=== PATIENT | male | born 1980 ===

== ENCOUNTER 2018-09-01 10:51 | Inpatient (IN) | payer OTHER ==
--- NOTE | 2018-09-01 12:42 | C.PDOC ---
History Of Present Illness 38 year old male presents to the ED for evaluation of right leg pain and lower back pain which began today. Patient states he was at work when he accidentally fell thorough a scaffold at around 0800 today. Patient denies head injury, LOC, urinary/bowel incontinence, extremity numbness/weakness. Time Seen by Provider: 09/01/18 11:31 Chief Complaint (Nursing): Lower Extremity Problem/Injury History Per: Patient History/Exam Limitations: no limitations Onset/Duration Of Symptoms: Hrs Current Symptoms Are (Timing): Still Present Additional History Per: Patient Past Medical History Reviewed: Historical Data, Nursing Documentation, Vital Signs Vital Signs: Last Vital Signs Temp 98.3 F 09/01/18 10:56 Pulse 97 H 09/01/18 10:56 Resp 20 09/01/18 10:56 BP 154/94 H 09/01/18 10:56 Pulse Ox 97 09/01/18 10:56 - Medical History PMH: No Chronic Diseases Surgical History: No Surg Hx Family History: States: Unknown Family Hx - Social History Hx Alcohol Use: No Hx Substance Use: No - Immunization History Hx Tetanus Toxoid Vaccination: No Hx Influenza Vaccination: Yes Hx Pneumococcal Vaccination: No Review Of Systems Genitourinary: Negative for: Incontinence Musculoskeletal: Positive for: Back Pain (lower), Leg Pain (right) Neurological: Negative for: Weakness, Numbness, Other (head injury, LOC ) Physical Exam - Physical Exam Appears: Non-toxic, No Acute Distress Skin: Normal Color, Warm, Dry, No Rash Head: Atraumatic, Normacephalic, No Tenderness Eye(s): bilateral: Normal Inspection, PERRL, EOMI Ear(s): Bilateral: Normal Nose: Normal, No Septal Hematoma Oral Mucosa: Moist Tongue: Normal Appearing, No Swelling Lips: Normal Appearing, No Swelling Teeth: Normal Dentition, No Tender To Palpation, No Loose Throat: No Erythema, No Exudate Neck: Normal ROM, No Midline Cervical Tenderness, No Paracervical Tenderness, Supple Chest: Symmetrical, No Deformity, No Tenderness, No Ecchymosis, No Subcutaneous Emphysema Cardiovascular: Rhythm Regular, No Friction Rub, No Murmur Respiratory: Normal Breath Sounds, No Rales, No Rhonchi, No Stridor, No Wheezing Gastrointestinal/Abdominal: Bowel Sounds (active), Soft, No Tenderness, No Guarding, No Rebound, No Hernia Back: Normal Inspection, No CVA Tenderness, No Vertebral Tenderness, No Pa raspinal Tenderness Extremity: Tenderness (moderate to lateral right ankle and lateral right knee ), Capillary Refill (less than 2 seconds ), Swelling (moderate to lateral right ankle and lateral right knee ), Other ((+) mild Right hip tenderness) Extremity: Bilateral: Normal Color And Temperature Pulses: Left Femoral: Normal, Right Femoral: Normal, Left Dorsalis Pedis: Normal, Right Dorsalis Pedis: Normal Neurological/Psych: Oriented x3, Normal Speech, Normal Cognition, Normal Sensation Gait: Steady ED Course And Treatment - Laboratory Results Result Diagrams: 09/01/18 16:06 09/01/18 16:06 O2 Sat by Pulse Oximetry: 97 (on RA) Pulse Ox Interpretation: Normal - Other Rad hip/pelvis XR X-Ray: Viewed By Me, Read By Radiologist Interpretation: PROCEDURE: Right Hip Radiographs. The. HISTORY: fall, pain. COMPARISON: None. FINDINGS: BONES: No acute fracture. JOINTS: Normal. SOFT TISSUES: Normal. OTHER FINDINGS: None. IMPRESSION: No demonstrated fracture or dislocation. ankle XR X-Ray: Viewed By Me, Read By Radiologist Interpretation: Date of service: 09/01/2018. PROCEDURE: Right Ankle Rad iographs. Single view of the right ankle obtained. HISTORY: ankle injury, pain. COMPARISON: None available. FINDINGS: BONES: Comminuted intra- articular fracture distal left tibial diametaphysis. JOINTS: Ankle mortise maintained. Talar dome intact. SOFT TISSUES: Diffuse bilateral soft tissue swelling. OTHER FINDINGS: None. IMPRESSION: Comminuted intra-articular fracture of the distal left tibia. Ankle mortise maintained lumbar spine XR X-Ray: Viewed By Me, Read By Radiologist Interpretation: Date of service: 09/01/2018. PROCEDURE: Radiographs of the Lumbar Spine. HISTORY: fall onto back, pain. COMPARISON: No prior. FINDINGS: BONES: No acute compression fractures no retropulsed fragments. Vertebral bodies exhibit normal stature. Vertebral bodies and facets normally aligned. DISC SPACES: Minor multilevel degenerative spondylosis. Small marginal anterior osteophyte formation noted at several levels. Disc space heights are relatively maintained.. Minor facet arthropathy L5-S1 through the L3-L4 levels in somewhat decreasing order of severity. OTHER FINDINGS: None. IMPRESSION: No acute fractures. knee XR X-Ray: Viewed By Me, Read By Radiologist Interpretation: Date of service: 09/01/2018. PROCEDURE: Right Knee Radiographs. HISTORY: Injury, pain and swelling to the knee. COMPARISON: None. FINDINGS: BONES: Normal. No fracture. JOINTS: Small anterior patella enthesophytes. Very tiny posterior patella osteophyte. Minimal marginal osteophyte seen arising from the medial tibial plateau and lateral tibial condyle. JOINT EFFUSION: Small suprapatellar joint effusion. OTHER FINDINGS: None. IMPRESSION: No evidence of acute displaced fracture nor dislocation. Minimal degenerative osteoarthritis with suspected small joint effusion tibia/fibula XR X-Ray: Viewed By Me, Read By Radiologist Interpretation: Date of service: 09/01/2018. PROCEDURE: Radiographs of the right tibia and fibula. HISTORY: injury to the lower leg, swelling. COMPARISON: None available. TECHNIQUE: Frontal and lateral views obtained. FINDINGS: BONES: Comminuted distal tibial fracture with extension to the tibiotalar articulation. JOINT SPACES: Unremarkable. OTHER FINDINGS: None. IMPRESSION: Comminuted intra-articular distal tibial fracture. Medical Decision Making Medical Decision Making: Progress: Hip XR, Right ankle XR, Right knee XR, Right tib/fib XR ordered and reviewed. Motrin PO and Tylenol PO given. At 1330, the case was discussed with Navigating Officer resident, Bisi, who has evaluated the patient at bedside. She recommends CT scan of the lower extrem. Navigating Officer has placed a Posterior U splint on the patient. Case was discussed with Dr. Armando who states she will consult on the patient and send the patient to the OR tomorrow. Patient is to be NPO after midnight. The case was discussed with Dr. Linette Linares who states to admit the patient to internal medicine as the patient has insurance and its worksmen comp. The case was discussed with Dr. Langford (internal medicine oncall) who agrees to admit the patient to her service. Disposition - Disposition Disposition: HOSPITALIZED Disposition Time: 17:20 Condition: STABLE - POA Present On Arrival: None - Clinical Impression Clinical Impression: Fracture of distal end of left tibia, Contusion, hip, Back contusion - PA / [employer] / Resident Statement MD/DO has reviewed & agrees with the documentation as recorded. - Scribe Statement The provider has reviewed the documentation as recorded by the Scribe (Sharda Linares) All medical record entries made by the Scribe were at my direction and personally dictated by me. I have reviewed the chart and agree that the record accurately reflects my personal performance of the history, physical exam, medical decision making, and the department course for this patient. I have also personally directed, reviewed, and agree with the discharge instructions and disposition.
--- NOTE | 2018-09-01 13:25 | RAD ---
PROCEDURE: Right Hip Radiographs. The HISTORY: fall, pain COMPARISON: None. FINDINGS: BONES: No acute fracture. JOINTS: Normal. SOFT TISSUES: Normal. OTHER FINDINGS: None. IMPRESSION: No demonstrated fracture or dislocation.
--- NOTE | 2018-09-01 13:26 | RAD ---
Date of service: 09/01/2018 PROCEDURE: Right Ankle Radiographs. Single view of the right ankle obtained. HISTORY: ankle injury, pain COMPARISON: None available. FINDINGS: BONES: Comminuted intra-articular fracture distal left tibial diametaphysis. JOINTS: Ankle mortise maintained. Talar dome intact SOFT TISSUES: Diffuse bilateral soft tissue swelling OTHER FINDINGS: None. IMPRESSION: Comminuted intra-articular fracture of the distal left tibia. Ankle mortise maintained
--- NOTE | 2018-09-01 13:27 | RAD ---
Date of service: 09/01/2018 PROCEDURE: Right Knee Radiographs. HISTORY: Injury, pain and swelling to the knee COMPARISON: None. FINDINGS: BONES: Normal. No fracture. JOINTS: Small anterior patella enthesophytes. Very tiny posterior patella osteophyte. Minimal marginal osteophyte seen arising from the medial tibial plateau and lateral tibial condyle. JOINT EFFUSION: Small suprapatellar joint effusion. OTHER FINDINGS: None. IMPRESSION: No evidence of acute displaced fracture nor dislocation. Minimal degenerative osteoarthritis with suspected small joint effusion
--- NOTE | 2018-09-01 13:27 | RAD ---
Date of service: 09/01/2018 PROCEDURE: Radiographs of the right tibia and fibula. HISTORY: injury to the lower leg, swelling COMPARISON: None available TECHNIQUE: Frontal and lateral views obtained. FINDINGS: BONES: Comminuted distal tibial fracture with extension to the tibiotalar articulation. JOINT SPACES: Unremarkable. OTHER FINDINGS: None. IMPRESSION: Comminuted intra-articular distal tibial fracture.
--- NOTE | 2018-09-01 13:29 | RAD ---
Date of service: 09/01/2018 PROCEDURE: Radiographs of the Lumbar Spine. HISTORY: fall onto back, pain COMPARISON: No prior. FINDINGS: BONES: No acute compression fractures no retropulsed fragments. Vertebral bodies exhibit normal stature. Vertebral bodies and facets normally aligned. DISC SPACES: Minor multilevel degenerative spondylosis. Small marginal anterior osteophyte formation noted at several levels. Disc space heights are relatively maintained.. Minor facet arthropathy L5-S1 through the L3-L4 levels in somewhat decreasing order of severity. OTHER FINDINGS: None. IMPRESSION: No acute fractures.
--- NOTE | 2018-09-01 14:21 | CP.PCM.CON ---
History of Present Illness - History of Present Illness History of Present Illness: Podiatry Consult Note - Dr. Armando 38 y/o male with no significant PMHx seen in emergency room after falling through scaffolding this morning at 8am. He states he sustained injuries to his lower back, right hip, right knee and right ankle. At present he states the pain is the worst in his ankle with some mild to moderate pain in his lower back. He says he can wiggle his toes. He denies tingling, burning or numbness at present. Denies F/C/N/V/CP/SOB PSHx: denies ALL: NKDA SocHx: social EtOH; denies cigarette or illicit drug use Review of Systems - Review of Systems All systems: reviewed and no additional remarkable complaints except (per HPI) Past Patient History - Past Social History Smoking Status: Never Smoked - PSYCHIATRIC Hx Substance Use: No - SURGICAL HISTORY Hx Surgeries: No - ANESTHESIA Hx Anesthesia: No Meds Allergies/Adverse Reactions: Allergies Allergy/AdvReac Type Severity Reaction Status Date / Time acetaminophen Allergy Verified 09/01/18 11:01 Physical Exam - Constitutional Appears: Well, Non-toxic, No Acute Distress - Extremities Exam Additional comments: Right lower extremity focused exam: Vasc: DP?PT pulses palpable 2/4. Temperature gradient is warm to warm. CFT < 3 sec to all digits. Mild perimalleolar edema noted about the ankle and dorsum of foot Derm: No open lesions, no erythema, no ecchymosis, no breaks in skin or soft tissue Neuro: protective and gross sensation intact Ortho: tenderness noted to palpation of anterior and anterolateral ankle joint. Patient is able to actively wiggle toes and perform dorsiflexion at ankle, limited secondary to guarding. No posterior calf tenderness noted - Neurological Exam Neurological exam: Alert, Oriented x3 - Psychiatric Exam Psychiatric exam: Normal Affect, Normal Mood Results - Vital Signs Recent Vital Signs: Last Vital Signs Temp 98.3 F 09/01/18 10:56 Pulse 97 H 09/01/18 10:56 Resp 20 09/01/18 10:56 BP 154/94 H 09/01/18 10:56 Pulse Ox 97 09/01/18 12:47 Assessment & Plan - Assessment and Plan (Free Text) Assessment: 38 y/o male with 1) right comminuted intraarticular distal tibia fracture secondary to trauma and 2) gait instability Plan Patient seen and evaluated in ED Discussed plan with attending Dr. Armando X-rays of R ankle reviewed- reveal intraarticular distal tibia fracture, ankle mortise well preserved, no fibula fracture identified RLE CT ordered - reveals severely comminuted distal tibia intraarticular fracture; fibula intact with no signs of fracture Additional imaging for poly trauma workup to right knee, hip and back all negative RLE placed in Watson compression and AO splint Patient is to remain NWB at all times and keep splint clean, dry and intact Physical therapy consult placed for crutch training Explained to patient and his that he will need surgical intervention for his right ankle secondary to unstable fracture pattern Patient to be admitted for gait instability and will undergo surgery pending Will continue to follow while in house
[2018-09-01] MEDS ORDERED: Morphine 4 MG/ML VIAL ONE (15:21)
[2018-09-01 16:10] LABS: BASO % 0.5 % (0.0-2.0); EOS % 0.4 % (0.0-4.0); HEMOGLOBIN 16.1 g/dL (12.0-18.0); LYMPH # 1.5 K/uL (1.0-4.3); MEAN CELL VOLUME 85.4 fL (80.0-94.0); MEAN CORPUSCULAR HEMOGLOBIN 27.9 pg (27.0-31.0); MEAN CORPUSCULAR HGB CONC 32.6 g/dL (33.0-37.0); MEAN PLATELET VOLUME 7.6 fL (7.2-11.7); MONO # 0.6 K/uL (0.0-0.8); MONO % 7.5 % (0.0-10.0); NEUT % 73.6 % (50.0-75.0); RBC 5.78 Mil/uL (4.40-5.90); RED CELL DISTRIBUTION WIDTH 15.1 % (11.5-14.5); WHITE BLOOD COUNT 8.1 K/uL (4.8-10.8)
[2018-09-01 16:20] LABS: PROTHROMBIN TIME 11.3 SECONDS (9.7-12.2)
[2018-09-01 16:26] LABS: BLOOD UREA NITROGEN 8 mg/dL (9-20); CALCIUM 8.7 mg/dl (8.6-10.4); GFR NON-AFRICAN AMERICAN > 60
[2018-09-01 16:30] LABS: ALB/GLOB RATIO 1.3 (1.0-2.1); ALBUMIN 4.6 g/dL (3.5-5.0); ALT/SGPT 32 U/L (21-72); AST/SGOT 45 U/L (17-59)
--- NOTE | 2018-09-01 16:31 | CT ---
Date of service: 09/01/2018 PROCEDURE: CT of the right lower extremity. HISTORY: Right ankle fracture with pain right hip and right knee. COMPARISON: Comparison made with plain film radiographs of the right hip, right tibia fibula and right ankle obtained earlier same day TECHNIQUE: Contiguous axial images of the right lower extremity from hip to foot obtained. Obtained. Coronal and sagittal reformats were generated. Radiation dose: Total exam DLP = 1829.36 mGy-cm. This CT exam was performed using one or more of the following dose reduction techniques: Automated exposure control, adjustment of the mA and/or kV according to patient size, and/or use of iterative reconstruction technique. FINDINGS: BONES: Redemonstrated is a mildly displaced comminuted intra-articular fracture of the right distal tibia. Fracture lines extend into the tibiotalar articulation. Ankle mortise maintained No other acute fractures are identified.. Minimal degenerative osteoarthritis right knee. RIGHT HIP JOINT: Unremarkable. No dislocation. No degenerative changes. SOFT TISSUES: There is soft tissue swelling surrounding the right ankle. IMPRESSION: There is a mildly displaced comminuted intra-articular fracture distal right tibia. Ankle mortise maintained. Surrounding soft tissue swelling. No other definitive fractures are identified.
[2018-09-01] MEDS ORDERED: HYDROmorphone 0.5 mg/0.5 ml ISec IVP PRN (22:44)
--- NOTE | 2018-09-02 09:12 | CP.PCM.PN ---
Subjective - Date & Time of Evaluation Date of Evaluation: 09/02/18 Time of Evaluation: 09:11 - Subjective Subjective: Podiatry Progress Note - Dr. 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 38 y/o male seen at bedside this morning for right tibia fracture with AO splint intact to right lower extremity. Patient resting comfortably in bed in NAD, with at bedside. Patient denies any pain at this time, states the medications are helping. States he is aware of surgery tomorrow. Has no new pedal complaints . Says the pain in his right knee, hip and back has slightly improved. He states that he did crutch training earlier today with physical therapy which went well. Denies F/C/N/V/CP/SOB Objective - Vital Signs/Intake and Output Vital Signs (last 24 hours): Temp Pulse Resp BP Pulse Ox 98.0 F 81 20 128/86 95 09/02/18 07:05 09/02/18 07:05 09/02/18 07:05 09/02/18 07:05 09/02/18 07:05 Intake and Output: 09/02/18 09/02/18 06:59 18:59 Intake Total 240 Balance 240 - Medications Medications: Current Medications Hydromorphone HCl (Dilaudid) 0.5 mg IVP Q6H PRN PRN Reason: Pain, moderate (4-7) Ibuprofen (Motrin Tab) 600 mg PO Q6H PRN PRN Reason: Pain, Mild (1-3) Last Admin: 09/01/18 23:47 Dose: 600 mg - Labs Labs: 09/01/18 16:06 09/01/18 16:06 PT 11.3 SECONDS (9.7-12.2) 09/01/18 16:06 INR 1.0 09/01/18 16:06 APTT 30 SECONDS (21-34) 09/01/18 16:06 - Constitutional Appears: Well, Non-toxic, No Acute Distress - Extremities Exam Additional comments: Right lower extremity focused exam: Right lower extremity wrapped in AO splint, remains clean dry and intact at this time- no strikethrough, no signs of wear Patient able to wiggle toes without difficulty or pain Capillary refill time < 3 seconds to all digits - Neurological Exam Neurological Exam: Alert, Awake, Oriented x3 - Psychiatric Exam Psychiatric exam: Normal Affect, Normal Mood Assessment and Plan - Assessment and Plan (Free Text) Assessment: 38 y/o male with right comminuted intraarticular tibia fracture, to go to OR tomorrow at 7:30am for application of external fixator Plan Patient seen and evaluated at bedside Discussed plan with Dr. Armando All questions and concerns regarding surgery and injury answered to satisfaction of patient and his Medical clearance requested at this time, optimization appreciated Patient to be NPO after midnight tonight patient to remain NWB to RLE with use of crutches at all times- physical therapy on board Continue pain management per primary team Pt to go to OR tomorrow at 7:30am for application of external fixator Plan for staged surgical intervention with delayed ORIF of tibia fracture, likely to follow tomorrow's surgery within 5-7 days Please hold all anti-coagulants after tonight/do not begin anticoagulant therapy Will continue to monitor patient while in house
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
--- NOTE | 2018-09-02 16:36 | RAD ---
Date of service: 09/02/2018 HISTORY: medical clearance COMPARISON: No prior. FINDINGS: LUNGS: No pulmonary infiltrate identified. There is a circumscribed nodule in the right upper lobe. Consider further evaluation with computed tomography. Questionable tiny calcified granulomas in the left upper lobe PLEURA: No significant pleural effusion identified, no pneumothorax apparent. CARDIOVASCULAR: No aortic atherosclerotic calcification present. Normal cardiac size. No pulmonary vascular congestion. OSSEOUS STRUCTURES: No significant abnormalities. VISUALIZED UPPER ABDOMEN: Normal. OTHER FINDINGS: None. IMPRESSION: Right upper lobe pulmonary nodule. Possible calcified granulomas in the left upper lobe. Consider further evaluation with computed tomography of the chest.
[2018-09-02] MEDS: HYDROmorphone 1 mg/ml ISec IVP PRN (17:45)
[2018-09-03] MEDS: HYDROmorphone 1 mg/ml ISec IVP PRN ×2 (02:35→11:49)
--- NOTE | 2018-09-03 07:27 | CP.PCM.PN ---
<Nik Romero - Last Filed: 09/03/18 13:05> Subjective - Date & Time of Evaluation Date of Evaluation: 09/03/18 Time of Evaluation: 13:08 - Subjective Subjective: PGY-[address] Escoto Patient seen and examined at bedside post-procedure. He appears to have tolerated procedure well. Patient placed back on regular diet. Will restart AC. Will follow with podiatry for further recs. Patient with adequate pain relief from pain medication regimen. Patient denies shortness of breath, chest pain, headache, n/v/d/c/ Objective - Vital Signs/Intake and Output Vital Signs (last 24 hours): Temp Pulse Resp BP Pulse Ox 98.7 F 89 20 115/68 95 09/03/18 04:00 09/03/18 04:00 09/03/18 04:00 09/03/18 04:00 09/03/18 04:00 Intake and Output: 09/03/18 09/03/18 06:59 18:59 Output Total 450 Balance -450 - Medications Medications: Current Medications Hydromorphone HCl (Dilaudid) 1 mg IVP Q4H PRN PRN Reason: Pain, severe (8-10) Last Admin: 09/03/18 02:35 Dose: 1 mg Ibuprofen (Motrin Tab) 600 mg PO Q6H PRN PRN Reason: Pain, Mild (1-3) Last Admin: 09/02/18 12:58 Dose: 600 mg Oxycodone HCl (Oxycodone Immediate Release Tab) 5 mg PO Q6 PRN PRN Reason: Pain, moderate (4-7) - Labs Labs: 09/01/18 16:06 09/01/18 16:06 PT 11.3 SECONDS (9.7-12.2) 09/01/18 16:06 INR 1.0 09/01/18 16:06 APTT 30 SECONDS (21-34) 09/01/18 16:06 - Constitutional Appears: Non-toxic, No Acute Distress - Head Exam Head Exam: ATRAUMATIC, NORMOCEPHALIC - Eye Exam Eye Exam: EOMI, Normal appearance - ENT Exam ENT Exam: Mucous Membranes Moist - Respiratory Exam Respiratory Exam: Clear to Ausculation Bilateral, NORMAL BREATHING PATTERN. absent: Rhonchi, Wheezes - Cardiovascular Exam Cardiovascular Exam: REGULAR RHYTHM, +S1, +S2 - GI/Abdominal Exam GI & Abdominal Exam: Soft, Normal Bowel Sounds. absent: Tenderness - Extremities Exam Extremities Exam: absent: Pedal Edema, Tenderness Additional comments: right lower extremity with cast and external fixator in place - Neurological Exam Neurological Exam: Alert, Awake, Oriented x3 - Psychiatric Exam Psychiatric exam: Normal Affect, Normal Mood - Skin Skin Exam: Dry, Intact Assessment and Plan - Assessment and Plan (Free Text) Assessment: Comminuted intra articular distal tibial fracture s/p Fall Imaging: -tibia fibula right xray (09/01/18): comminuted intra articular distal tibial fracture -right knee xray: no evidence of acute displaced fracture nor dislocation. minimal degenerative osteoarthritis with suspected small joint effusion. -lumbar spine xray: no acute fractures -ankle xray: comminuted intra-articular fracture of the distal left tibia. Ankle mortise maintained -hip/pelvis xray: no demonstrated fracture or dislocation -CT right LE without contrast: mildly displaced comminuted intra-articular fracture distal right tibia. ankle mortise maintained. surrounding soft tissue swelling. no other definitive fractures are identified. Dr. Armanod, podiatry consulted, help appreciated -application of right ankle external fixator in OR today with podiatry - patient tolerated well --Patient planned for second procedure in 5-7 days for ORIF -Patient is NWB - patient had crutch training with PT -Pt to remain NWB on RLE and continue use of crutches -Continue PT -EKG- NSR Meds: * Dilaudid 1 mg ivp q4h prn for severe pain * Oxycodone 5mg po q6h prn for moderate pain * Ibuprofen 600mg po q6h prn Cardiac Risk Index in Non cardiac Surgery Score: 0 indicates 6% risk of complications patient is low risk for non cardiac surgery Incidental lung nodule on Chest XR - Chest XR 09/02: Right upper lobe pulmonary nodule. Possible calcified granulomas in the left upper lobe. Consider further evaluation with computed tomography of the chest. - Patient denies history of tobacco us, reports no pulmonary symptoms - Would recommend follow with primary for repeat follow up imaging to monitor for progression Prophylaxis -scd on left leg -no gi prophylaxis indicated Discussed with Dr. Jevon Romero, PGY-1 <Joe Escoto - Last Filed: 09/09/18 03:05> Objective - Vital Signs/Intake and Output Vital Signs (last 24 hours): Temp Pulse Resp BP Pulse Ox 98.9 F 85 20 108/66 94 L 09/08/18 23:00 09/08/18 23:00 09/08/18 23:00 09/08/18 23:00 09/08/18 23:00 Intake and Output: 09/08/18 09/09/18 18:59 06:59 Intake Total 380 Output Total 750 Balance -370 - Medications Medications: Current Medications Celecoxib (Celebrex) 100 mg PO Q12 PRN PRN Reason: Pain, moderate (4-7) Famotidine (Pepcid) 20 mg PO DAILY [facility] Last Admin: 09/08/18 10:40 Dose: 20 mg Ketorolac Tromethamine (Toradol) 30 mg IVP Q8 PRN PRN Reason: Pain, moderate (4-7) Last Admin: 09/09/18 01:21 Dose: 30 mg Tramadol HCl (Ultram) 50 mg PO Q12 [facility] Last Admin: 09/08/18 22:02 Dose: 50 mg - Labs Labs: 09/08/18 06:32 09/08/18 06:32 PT 11.3 SECONDS (9.7-12.2) 09/01/18 16:06 INR 1.0 09/01/18 16:06 APTT 30 SECONDS (21-34) 09/01/18 16:06 Attending/Attestation - Attestation I have personally seen and examined this patient.: Yes I have fully participated in the care of the patient.: Yes I have reviewed all pertinent clinical information, including history, physical exam and plan: Yes Notes (Text): 09/09/18 03:04 Tib/Fib Fracture s/p Fall s/p external fixator plan for staged ORIF PT eval Pain meds PRN
[2018-09-03] MEDS ORDERED: Propofol 10 mg/ml Inj (20 ML) ONE (08:21)
[2018-09-03] MEDS ORDERED: Rocuronium 10 mg/ml (5 ml) ONE (08:21)
[2018-09-03] MEDS ORDERED: Succinylcholine Chloride 20 mg/ml Syr (5 ml) IV ONE (08:21)
[2018-09-03] MEDS ORDERED: Midazolam 2 MG/2 ML VIAL ONE (08:21)
[2018-09-03] MEDS ORDERED: ceFAZolin 1 gm in NS 2 GM/200 ML BAG IVPB ONE (08:25)
[2018-09-03] MEDS ORDERED: Neostigmine 1:1000 (1 mg/ml) Inj ONE (09:51)
[2018-09-03] MEDS ORDERED: Ropivacaine 0.5% PF (20 ml) inj INJ ONE (10:01)
--- NOTE | 2018-09-03 10:10 | PCM.SURG1 ---
Surgeon's Initial Post Op Note - Surgeon's Notes Surgeon: mary Office Runner: zia pgy-3, jonathan pgy-2 Type of Anesthesia: General LMA Anesthesia Administered By: mahamed Pre-Operative Diagnosis: right ankle displaced pilon tibial fracture Operative Findings: see dictation. synthes delta frame Post-Operative Diagnosis: same Operation Performed: right ankle application of external fixator Specimen/Specimens Removed: none Estimated Blood Loss: EBL {In ML}: 5 Blood Products Given: N/A Drains Used: No Drains Post-Op Condition: Good Date of Surgery/Procedure: 09/03/18 Time of Surgery/Procedure: 10:09
[2018-09-03] MEDS: HYDROmorphone 0.5 mg/0.5 ml ISec IVP PRN ×2 (10:16→10:23)
--- NOTE | 2018-09-03 10:27 | PCM.ANESB2 ---
Popliteal Nerve Block - Popliteal Nerve Block Date of Procedure: 09/03/18 - Procedure Popliteal Nerve Block: This procedure was explained to the patient that it is for post-operative pain management. Consent was obtained after a thorough discussion with the patient regarding the benefits and possible complications of local anesthetic block of the sciatic nerve at the popliteal level. The patient was brought to the operating room and standard monitors are applied. Time-out was held with the circulating nurse to confirm the correct surgery and the appropriate block. After applying oxygen by nasal cannula and administering IV Sedation, patient's operative leg was gently raised and supported and the groove in between the biceps femoris and vastus lateralis muscles was carefully palpated. The skin approximately 8cm above the popliteal crease was then marked. The ultrasound transducer was then applied to the posterior thigh approximately 8cm above the popliteal crease in the transverse plane and the sciatic nerve before its division was visualized lateral to the popliteal artery and in between the bicep femoris and semimembranosus/semitendinosus muscles. After identification, the lateral portion of the thigh was prepped with Betadine solution three times and Lidocaine 1% was injected subcutaneously for topical anesthesia. At this point, a # 21 gauge Stimuplex insulated 4 inch needle was inserted into pre-marked area and advanced in a perpendicular direction. The needle was inserted above the ultrasound transducer in-plane towards the sciatic nerve in a [id number] direction. Needle advancement was performed carefully under direct ultrasound visualization. After repeated negative aspiration, 30cc of _0.5____ % ____ropivcane__ was injected. Under ultrasound guidance the local anesthetics were observed surrounding sciatic nerve . The needle was removed intact and sterile dressing was applied. The patient tolerated the popliteal nerve block well with stable vital signs and was subsequently prepared for the surgery.
--- NOTE | 2018-09-03 11:12 | RAD ---
Date of service: 09/03/2018 PROCEDURE: Right Ankle Radiographs. HISTORY: s/p right leg surgery COMPARISON: 09/01/2017 FINDINGS: BONES: The comminuted fracture of the distal tibial diaphysis to epiphysis/tibial plafond is hree noted. No significant appearing displacement of the fractured fragments is noted. The tibiotalar fracture line is approximately 1.5 Images obtained during examination: The fracture components in the lateral view involve the anterior distal tibia as well as the posterior malleolus. No horizontal medial malleolar fracture seen. The fibula appears intact. No lateral ankle mortise widening seen. On these images the height of the medial ankle mortise appears slightly greater than that noted laterally. There is a fixation rods/screws projecting through into the proximal tibial shaft, the talus and through the calcaneus. JOINTS: Normal. No osteoarthritis. Ankle mortise maintained. Talar dome intact SOFT TISSUES: Posterior inferior splinter casting present. OTHER FINDINGS: None. IMPRESSION: Comminuted distal tibial fracture with intra-articular extension-no significant displacement. Interval postop changes for fixation purposes as detailed above.
--- NOTE | 2018-09-03 11:14 | RAD ---
Date of service: 09/03/2018 PROCEDURE: Radiographs of the right tibia and fibula. HISTORY: s/p surgery right leg COMPARISON: Correlation is made with the same-day right ankle portable postop study images. TECHNIQUE: Frontal and lateral views obtained. FINDINGS: BONES: The comminuted fracture involving the distal tibial diaphysis metaphysis and epiphysis into the tibiotalar joint is re-noted. No marked displacement of the comminuted fracture fragments noted. There is trace cortical offset of the anterior tibial fractured fragment and perhaps 2 mm separation of fracture ends along the posterior malleolar aspect. JOINT SPACES: Right knee joint mild arthrosis. Right ankle intra-articular fracture extension. No gross ankle mortise widening seen. OTHER FINDINGS: None. IMPRESSION: Postop changes/fixation for comminuted distal tibial fracture intra-articular as referenced above.
--- NOTE | 2018-09-03 11:18 | CARD ---
APPROVED REPORT Date of service: 09/02/2018 EKG Measurement Heart [id number] <Conclusion> Normal sinus rhythm Normal ECG
--- NOTE | 2018-09-03 12:54 | RAD ---
Date of service: 09/03/2018 PROCEDURE: Intraoperative Fluoroscopy. HISTORY: Fracture right ankle FINDINGS: Fluoroscopic assistance was provided for external fixation. Please refer to the operative report from [facility].
--- NOTE | 2018-09-04 00:25 | OP ---
PROCEDURE DATE: 09/03/2018 SURGEON: Peri Armando DPM ASSISTANTS: Bonnie Britton DPM, PGY-3 and Karly Mendoza DPM, PGY-2 FACILITY MAINTENANCE HELPER: Dr. Griffith ANESTHESIA: General LMA. PREOPERATIVE DIAGNOSIS: Right ankle displacing comminuted tibial pilon fracture. POSTOPERATIVE DIAGNOSIS: Right ankle displacing comminuted tibial pilon fracture. PROCEDURE PERFORMED: Right ankle application of external fixator. INDICATIONS: The patient is a 38-year-old male with the above-mentioned diagnosis. The patient seeks surgical intervention at this time. The patient signed the consent after careful explanation of risks, benefits, complications, and alternatives for surgical procedure. No guarantees were given nor implied. NPO status was confirmed prior to bringing the patient into the operating room. The patient was brought into the operating room and placed on the operating room table in a supine position. Time-out was performed for identification of the correct patient and procedure. A well-padded pneumatic thigh tourniquet was placed to the patient's right thigh in a supramalleolar position. After induction of general anesthesia, the right foot and leg were then prepped and draped in a normal sterile manner. The pneumatic thigh tourniquet was then inflated to 350 mmHg, and the procedure began. DESCRIPTION OF PROCEDURE: Attention was directed to the anterior aspect of the right lower extremity, and a sterile pump was applied underneath the right leg to hold the right lower extremity into correct alignment with the frame. Safe zone of the leg was carefully determined under C-arm guidance, and the pin placement sites were marked accordingly. Attention was then directed to the right heel where using a #15 blade, a small 1-cm incision was made medial to the calcaneal tuberosity. A 5-cm centrally threaded Steinmann pin was inserted into the calcaneus from medial to lateral and the other end of the foot. Position was confirmed under C-arm guidance and left in place. Next, open adjustable clamps were attached to the both sides of the Steinmann pin. Attention was directed to the anterior aspect of the right leg where one finger breadth medial to the tibial crest about 20 cm proximal to the ankle joint, a 5-mm Schanz screw was inserted into the tibia from anterior to posterior. Another 5-mm Schanz screw was then inserted about 5 cm distal and proximal to the first screw using a guide and placed from anterior to posterior in the tibia. An outrigger with two arms was attached to the large Pean clamp. Then, a combination of clamps were attached to each arm of the outrigger. Next, two 25-cm carbon fiber rods were attached to the large Pean clamp proximally and the open adjustable clamps distally. Next, attention was then redirected at the talus where under C-arm guidance, another Schanz screw was placed from medial to lateral through the talar neck for fixation and stabilization. Excellent position was noted under fluoroscopy. The pin was then secured to the medial carbon fiber joanie with a combination of Pean clamp. Next, the distal pins were then pulled distally, and the ankle joint was distracted and then reduced until more anatomic alignment. The rods and the clamps were then taken down and secured to maximum tightness with a wrench. The right lower extremity was then dressed with Betadine-soaked Adaptic, 4x4 gauze, Jade, Christiano and a posterior splint. POSTOPERATIVE CONDITION: The patient tolerated the anesthesia and the procedure well and was escorted to the recovery room with vital signs stable and neurovascular status intact to right lower extremity. The patient will follow up with Dr. Armando in her office or in clinic on an outpatient basis. Bonnie Britton DPM Peri Armando DPM
[2018-09-04] MEDS: HYDROmorphone 1 mg/ml ISec IVP PRN ×5 (03:50→21:14)
[2018-09-04] MEDS: oxyCODONE 5 mg Immediate Release Tab PO PRN ×3 (06:00→20:14)
--- NOTE | 2018-09-04 15:18 | CP.PCM.PN ---
<Nik Romero - Last Filed: 09/04/18 15:18> Subjective - Date & Time of Evaluation Date of Evaluation: 09/04/18 Time of Evaluation: 15:23 - Subjective Subjective: PGY-[address] Linares Patient seen and examined at bedside. I was paged by nursing last night for patient c/o numbness and decreased motor function in right foot. On assessment, patient had strong pulses and warm extremities, but decreased motor/sensory. Alerted podiatry resident and confirmed that this was most likely 2/2 residual effects of popliteal nerve block. Today, patient no long c/o of these symptoms. He is c/o some pain in the affected extremity. Otherwise denies n/v/d/c, chest pain, headache, dizziness, SOB. Objective - Vital Signs/Intake and Output Vital Signs (last 24 hours): Temp Pulse Resp BP Pulse Ox 98.3 F 89 20 126/79 96 09/04/18 07:00 09/04/18 07:00 09/04/18 07:00 09/04/18 07:00 09/04/18 07:00 Intake and Output: 09/04/18 09/04/18 06:59 18:59 Intake Total 720 Output Total 450 Balance 270 - Medications Medications: Current Medications Heparin Sodium (Porcine) (Heparin) 5,000 units SC Q8 [facility] Last Admin: 09/04/18 14:13 Dose: 5,000 units Hydromorphone HCl (Dilaudid) 1 mg IVP Q4H PRN PRN Reason: Pain, severe (8-10) Last Admin: 09/04/18 14:05 Dose: 1 mg Ibuprofen (Motrin Tab) 600 mg PO Q6H PRN PRN Reason: Pain, Mild (1-3) Last Admin: 09/02/18 12:58 Dose: 600 mg Oxycodone HCl (Oxycodone Immediate Release Tab) 5 mg PO Q6 PRN PRN Reason: Pain, moderate (4-7) Last Admin: 09/04/18 12:26 Dose: 5 mg - Labs Labs: 09/01/18 16:06 09/01/18 16:06 PT 11.3 SECONDS (9.7-12.2) 09/01/18 16:06 INR 1.0 09/01/18 16:06 APTT 30 SECONDS (21-34) 09/01/18 16:06 - Constitutional Appears: Non-toxic, No Acute Distress - Head Exam Head Exam: ATRAUMATIC, NORMOCEPHALIC - Eye Exam Eye Exam: EOMI, Normal appearance - ENT Exam ENT Exam: Mucous Membranes Moist - Respiratory Exam Respiratory Exam: Clear to Ausculation Bilateral, NORMAL BREATHING PATTERN. absent: Rhonchi, Wheezes - Cardiovascular Exam Cardiovascular Exam: REGULAR RHYTHM, +S1, +S2 - GI/Abdominal Exam GI & Abdominal Exam: Soft, Normal Bowel Sounds. absent: Tenderness - Extremities Exam Extremities Exam: absent: Pedal Edema, Tenderness Additional comments: RLE stabilized with appropriate dressing and external fixators per surgery. Both LEs are neurovascularly intact, with strong pedal pulses b/l and motor/sensory fully intact. - Neurological Exam Neurological Exam: Alert, Awake, CN II-XII Intact, Oriented x3 - Psychiatric Exam Psychiatric exam: Normal Affect, Normal Mood - Skin Skin Exam: Dry, Intact Assessment and Plan - Assessment and Plan (Free Text) Assessment: Comminuted intra articular distal tibial fracture s/p Fall Imaging: -tibia fibula right xray (09/01/18): comminuted intra articular distal tibial fracture -right knee xray: no evidence of acute displaced fracture nor dislocation. minimal degenerative osteoarthritis with suspected small joint effusion. -lumbar spine xray: no acute fractures -ankle xray: comminuted intra-articular fracture of the distal left tibia. Ankle mortise maintained -hip/pelvis xray: no demonstrated fracture or dislocation -CT right LE without contrast: mildly displaced comminuted intra-articular fracture distal right tibia. ankle mortise maintained. surrounding soft tissue swelling. no other definitive fractures are identified. Dr. Armando, podiatry consulted, help appreciated -S/p application of right ankle external fixator in OR 09/03 with podiatry --Patient planned for second procedure in1-2 weeks for ORIF -Podiatry had recommended d/c to [facility] earlier this AM, however patient unable to be transferred to [facility] due to insurance reasons. Therefore we will continue to follow the case inpatient along with podiatry. -Patient is NWB - patient had crutch training with PT -Pt to remain NWB on RLE and continue use of crutches -Continue PT -EKG- NSR Meds: * Dilaudid 1 mg ivp q4h prn for severe pain * Oxycodone 5mg po q6h prn for moderate pain * Ibuprofen 600mg po q6h prn Cardiac Risk Index in Non cardiac Surgery Score: 0 indicates 6% risk of complications patient is low risk for non cardiac surgery Incidental lung nodule on Chest XR - Chest XR 09/02: Right upper lobe pulmonary nodule. Possible calcified granulomas in the left upper lobe. Consider further evaluation with computed tomography of the chest. - Patient denies history of tobacco us, reports no pulmonary symptoms - Would recommend follow with primary for repeat follow up imaging to monitor for progression Prophylaxis -scd on left leg -no gi prophylaxis indicated Discussed with Dr. Jevon Romero, PGY-1 <Joe Escoto - Last Filed: 09/09/18 03:04> Subjective - Subjective Subjective: Progress note for Dr Escoto Objective - Vital Signs/Intake and Output Vital Signs (last 24 hours): Temp Pulse Resp BP Pulse Ox 98.9 F 85 20 108/66 94 L 09/08/18 23:00 09/08/18 23:00 09/08/18 23:00 09/08/18 23:00 09/08/18 23:00 Intake and Output: 09/08/18 09/09/18 18:59 06:59 Intake Total 380 Output Total 750 Balance -370 - Medications Medications: Current Medications Celecoxib (Celebrex) 100 mg PO Q12 PRN PRN Reason: Pain, moderate (4-7) Famotidine (Pepcid) 20 mg PO DAILY [facility] Last Admin: 09/08/18 10:40 Dose: 20 mg Ketorolac Tromethamine (Toradol) 30 mg IVP Q8 PRN PRN Reason: Pain, moderate (4-7) Last Admin: 09/09/18 01:21 Dose: 30 mg Tramadol HCl (Ultram) 50 mg PO Q12 [facility] Last Admin: 09/08/18 22:02 Dose: 50 mg - Labs Labs: 09/08/18 06:32 09/08/18 06:32 PT 11.3 SECONDS (9.7-12.2) 09/01/18 16:06 INR 1.0 09/01/18 16:06 APTT 30 SECONDS (21-34) 09/01/18 16:06 Attending/Attestation - Attestation I have personally seen and examined this patient.: Yes I have fully participated in the care of the patient.: Yes I have reviewed all pertinent clinical information, including history, physical exam and plan: Yes Notes (Text): 09/09/18 02:57 Tib/Fib Fracture s/p Fall s/p external fixator on 09/03 plan for staged ORIF Pt has no insurance, as such we are unable to DC to [facility] while awaiting second stage of surgery Pain meds PRN PT eval
--- NOTE | 2018-09-04 15:28 | CP.PCM.PN ---
Subjective - Date & Time of Evaluation Date of Evaluation: 09/04/18 Time of Evaluation: 15:28 - Subjective Subjective: Podiatry Progress Note - Dr. Armando 38 y/o male seen at bedside today 1 day s/p application of external fixator to right lower extremity for comminuted intraarticular tibia fracture. Pt is resting at time of visit in NAD. States his pain is better today. Admits it was very painful last night when the nerve block wore off. Says the meds are helping to control the pain. States he is understanding that the next surgery will be delayed for a week or two. Denies F/C/N/V/CP/SOB. Denies putting any weight down on the right leg and is ambulating well with crutches. Objective - Vital Signs/Intake and Output Vital Signs (last 24 hours): Temp Pulse Resp BP Pulse Ox 98.3 F 89 20 126/79 96 09/04/18 07:00 09/04/18 07:00 09/04/18 07:00 09/04/18 07:00 09/04/18 07:00 Intake and Output: 09/04/18 09/04/18 06:59 18:59 Intake Total 720 Output Total 450 Balance 270 - Medications Medications: Current Medications Heparin Sodium (Porcine) (Heparin) 5,000 units SC Q8 GREGORY Last Admin: 09/04/18 14:13 Dose: 5,000 units Hydromorphone HCl (Dilaudid) 1 mg IVP Q4H PRN PRN Reason: Pain, severe (8-10) Last Admin: 09/04/18 14:05 Dose: 1 mg Ibuprofen (Motrin Tab) 600 mg PO Q6H PRN PRN Reason: Pain, Mild (1-3) Last Admin: 09/02/18 12:58 Dose: 600 mg Oxycodone HCl (Oxycodone Immediate Release Tab) 5 mg PO Q6 PRN PRN Reason: Pain, moderate (4-7) Last Admin: 09/04/18 12:26 Dose: 5 mg - Labs Labs: 09/01/18 16:06 09/01/18 16:06 PT 11.3 SECONDS (9.7-12.2) 09/01/18 16:06 INR 1.0 09/01/18 16:06 APTT 30 SECONDS (21-34) 09/01/18 16:06 - Constitutional Appears: Well, Non-toxic, No Acute Distress - Extremities Exam Additional comments: Right lower extremity focused exam: External fixator to right leg - pin sites examined and clean, no surrounding erythema or cellulitis, no drainage from pin sites, no concern for infection Vasc: DP/PT pulses are palpable 2/4 . Temperature gradient warm to warm. No significant edema noted to entirety of right lower extremity Neuro: protective and gross sensation intact Ortho: mild tenderness to palpation of skin near pin sites - Neurological Exam Neurological Exam: Alert, Awake, Oriented x3 - Psychiatric Exam Psychiatric exam: Normal Affect, Normal Mood Assessment and Plan - Assessment and Plan (Free Text) Assessment: 38 y/o male 1 day s/p right lower extremity application of external fixator for comminuted intraarticular tibia fracture Plan Patient seen and evaluated at bedside Discussed plan with Dr. Armando Surgical dressings removed and pin sites examined and cleaned Re-dressed RLE with betadine adaptic to pin sites, gauze, kerlix, Webril cast padding, posterior splint and AMITA Pt to be NWB at all times with use of crutches Likely to return to OR within 1-2 weeks for ORIF of tibia fracture Pt stable for D/C to rehab facility; D/C home not advised at patient lives on 4th floor walkup and is a fall risk Will continue to follow patient in house
[2018-09-05] MEDS: HYDROmorphone 1 mg/ml ISec IVP PRN ×5 (02:07→22:18)
[2018-09-05 07:15] LABS: MEAN CELL VOLUME 86.3 fL (80.0-94.0); MEAN CORPUSCULAR HEMOGLOBIN 28.4 pg (27.0-31.0); MEAN CORPUSCULAR HGB CONC 32.9 g/dL (33.0-37.0); MEAN PLATELET VOLUME 7.7 fL (7.2-11.7); RBC 5.28 Mil/uL (4.40-5.90); RED CELL DISTRIBUTION WIDTH 14.2 % (11.5-14.5); WHITE BLOOD COUNT 5.8 K/uL (4.8-10.8)
[2018-09-05 08:04] LABS: ALB/GLOB RATIO 1.3 (1.0-2.1); ALBUMIN 4.3 g/dL (3.5-5.0); ALT/SGPT 27 U/L (21-72); AST/SGOT 28 U/L (17-59); BLOOD UREA NITROGEN 11 mg/dL (9-20); CALCIUM 8.9 mg/dl (8.6-10.4); GFR NON-AFRICAN AMERICAN > 60
--- NOTE | 2018-09-05 09:02 | CP.PCM.PN ---
Subjective - Date & Time of Evaluation Date of Evaluation: 09/05/18 Time of Evaluation: 08:40 - Subjective Subjective: This is a 38 year old male who is status post external fixator placement on 09/03 for the right lower extremity for a comminuted intra-articular tibial fracture. There are plans for further surgery later this upcoming week. He reported pain overnight, however it is controlled with the pain medication regimen he is on at this time Hgb is stable this morning He denied chest pain, denied shortness of breath, denied palpitations, denied abominal pain Objective - Vital Signs/Intake and Output Vital Signs (last 24 hours): Temp Pulse Resp BP Pulse Ox 98.1 F 84 20 113/67 96 09/05/18 07:25 09/05/18 07:25 09/05/18 07:25 09/05/18 07:25 09/05/18 07:25 Intake and Output: 09/05/18 09/05/18 06:59 18:59 Intake Total 520 Output Total 600 Balance -80 - Medications Medications: Current Medications Heparin Sodium (Porcine) (Heparin) 5,000 units SC Q8 GREGORY Last Admin: 09/05/18 05:45 Dose: 5,000 units Hydromorphone HCl (Dilaudid) 1 mg IVP Q4H PRN PRN Reason: Pain, severe (8-10) Last Admin: 09/05/18 08:32 Dose: 1 mg Ibuprofen (Motrin Tab) 600 mg PO Q6H PRN PRN Reason: Pain, Mild (1-3) Last Admin: 09/02/18 12:58 Dose: 600 mg Oxycodone HCl (Oxycodone Immediate Release Tab) 5 mg PO Q6 PRN PRN Reason: Pain, moderate (4-7) Last Admin: 09/04/18 20:14 Dose: 5 mg - Labs Labs: 09/05/18 07:06 09/05/18 07:06 PT 11.3 SECONDS (9.7-12.2) 09/01/18 16:06 INR 1.0 09/01/18 16:06 APTT 30 SECONDS (21-34) 09/01/18 16:06 - Constitutional Appears: Well, No Acute Distress - Head Exam Head Exam: NORMAL INSPECTION, NORMOCEPHALIC - Eye Exam Eye Exam: EOMI, Normal appearance - ENT Exam ENT Exam: Mucous Membranes Moist - Respiratory Exam Respiratory Exam: Clear to Ausculation Bilateral, NORMAL BREATHING PATTERN - Cardiovascular Exam Cardiovascular Exam: REGULAR RHYTHM - Extremities Exam Additional comments: Right lower extremity with external fixator and covered with erin-wrapping at this time - Neurological Exam Neurological Exam: Alert, Awake Neuro motor strength exam: Left Upper Extremity: 5, Right Upper Extremity: 5 - Psychiatric Exam Psychiatric exam: Normal Affect, Normal Mood - Skin Skin Exam: Normal Color, Warm Assessment and Plan - Assessment and Plan (Free Text) Assessment: Comminuted intra articular distal tibial fracture s/p Fall 09/05: PT recommended [facility] however given that he will need additional procedure in the next one to two weeks the patient currently remains in the hosptial that time. Lab work stable, pain controlled at the moment. From previous: Imaging: -tibia fibula right xray (09/01/18): comminuted intra articular distal tibial fracture -right knee xray: no evidence of acute displaced fracture nor dislocation. minimal degenerative osteoarthritis with suspected small joint effusion. -lumbar spine xray: no acute fractures -ankle xray: comminuted intra-articular fracture of the distal left tibia. Ankle mortise maintained -hip/pelvis xray: no demonstrated fracture or dislocation -CT right LE without contrast: mildly displaced comminuted intra-articular frac ture distal right tibia. ankle mortise maintained. surrounding soft tissue swelling. no other definitive fractures are identified. Dr. Armando, podiatry consulted, help appreciated -S/p application of right ankle external fixator in OR 09/03 with podiatry --Patient planned for second procedure in1-2 weeks for ORIF -Podiatry had recommended d/c to [facility] earlier this AM, however patient unable to be transferred to [facility] due to insurance reasons. Therefore we will continue to follow the case inpatient along with podiatry. -Patient is NWB - patient had crutch training with PT -Pt to remain NWB on RLE and continue use of crutches -Continue PT -EKG- NSR Meds: * Dilaudid 1 mg ivp q4h prn for severe pain * Oxycodone 5mg po q6h prn for moderate pain * Ibuprofen 600mg po q6h prn Cardiac Risk Index in Non cardiac Surgery Score: 0 indicates 6% risk of complications patient is low risk for non cardiac surgery Incidental lung nodule on Chest XR - Chest XR 09/02: Right upper lobe pulmonary nodule. Possible calcified granulomas in the left upper lobe. Consider further evaluation with computed tomography of the chest. - Patient denies history of tobacco us, reports no pulmonary symptoms - Would recommend follow with primary for repeat follow up imaging to monitor for progression Prophylaxis -scd on left leg -no gi prophylaxis indicated
--- NOTE | 2018-09-05 11:41 | CP.PCM.PN ---
Subjective - Date & Time of Evaluation Date of Evaluation: 09/05/18 Time of Evaluation: 11:39 - Subjective Subjective: Podiatry Progress Note - Dr. Armando 38 y/o male seen at bedside today 2 days s/p application of external fixator to right lower extremity for comminuted intraarticular tibia fracture. Pt is resting at time of visit in NAD. States his pain is better today. Says the meds are helping to control the pain. States he is understanding that the next surgery will be delayed for a week or two, and patient pending discharge to [facility]. Denies F/C/N/V/CP/SOB. Denies putting any weight down on the right leg and is ambulating well with crutches. Objective - Vital Signs/Intake and Output Vital Signs (last 24 hours): Temp Pulse Resp BP Pulse Ox 98.1 F 84 20 113/67 96 09/05/18 07:25 09/05/18 07:25 09/05/18 07:25 09/05/18 07:25 09/05/18 07:25 Intake and Output: 09/05/18 09/05/18 06:59 18:59 Intake Total 520 Output Total 600 Balance -80 - Medications Medications: Current Medications Heparin Sodium (Porcine) (Heparin) 5,000 units SC Q8 GREGORY Last Admin: 09/05/18 05:45 Dose: 5,000 units Hydromorphone HCl (Dilaudid) 1 mg IVP Q4H PRN PRN Reason: Pain, severe (8-10) Last Admin: 09/05/18 08:32 Dose: 1 mg Ibuprofen (Motrin Tab) 600 mg PO Q6H PRN PRN Reason: Pain, Mild (1-3) Last Admin: 09/02/18 12:58 Dose: 600 mg Oxycodone HCl (Oxycodone Immediate Release Tab) 5 mg PO Q6 PRN PRN Reason: Pain, moderate (4-7) Last Admin: 09/04/18 20:14 Dose: 5 mg - Labs Labs: 09/05/18 07:06 09/05/18 07:06 PT 11.3 SECONDS (9.7-12.2) 09/01/18 16:06 INR 1.0 09/01/18 16:06 APTT 30 SECONDS (21-34) 09/01/18 16:06 - Constitutional Appears: Well, Non-toxic, No Acute Distress - Head Exam Head Exam: ATRAUMATIC, NORMOCEPHALIC - Extremities Exam Additional comments: Dressing to the Right leg clean, dry and intact - Neurological Exam Neurological Exam: Alert, Awake, Oriented x3 - Psychiatric Exam Psychiatric exam: Normal Affect, Normal Mood Assessment and Plan - Assessment and Plan (Free Text) Assessment: 38 y/o male 2 days s/p right lower extremity application of external fixator for comminuted intraarticular tibia fracture Plan: Patient seen and evaluated at bedside Discussed plan with Dr. Armando Surgical dressings kept intact- next change Friday09/07/18 Pt to be NWB at all times with use of crutches Likely to return to OR within 1-2 weeks for ORIF of tibia fracture Pt stable for D/C to rehab facility; D/C home not advised as patient lives on 4th floor walkup and is a fall risk Pending discharge to [facility] Will continue to follow patient in house
[2018-09-06] MEDS: HYDROmorphone 1 mg/ml ISec IVP PRN ×5 (03:42→23:16)
[2018-09-06 08:34] LABS: HEMOGLOBIN 15.3 g/dL (12.0-18.0); MEAN CELL VOLUME 86.1 fL (80.0-94.0); MEAN CORPUSCULAR HEMOGLOBIN 28.3 pg (27.0-31.0); MEAN CORPUSCULAR HGB CONC 32.9 g/dL (33.0-37.0); MEAN PLATELET VOLUME 7.3 fL (7.2-11.7); RBC 5.39 Mil/uL (4.40-5.90); RED CELL DISTRIBUTION WIDTH 14.4 % (11.5-14.5); WHITE BLOOD COUNT 4.8 K/uL (4.8-10.8)
--- NOTE | 2018-09-06 08:49 | CP.PCM.PN ---
Subjective - Date & Time of Evaluation Date of Evaluation: 09/06/18 Time of Evaluation: 08:48 - Subjective Subjective: Podiatry Progress Note - Dr. Armando 38 y/o male seen at bedside today 3 days s/p application of external fixator to right lower extremity for comminuted intraarticular tibia fracture. Pt is resting at time of visit in NAD. States his pain is better today. Says the meds are helping to control the pain. States he is understanding that the next surgery will be delayed for a week or two, and patient pending discharge to [facility]. Denies F/C/N/V/CP/SOB. Denies putting any weight down on the right leg and is ambulating well with crutches. Objective - Vital Signs/Intake and Output Vital Signs (last 24 hours): Temp Pulse Resp BP Pulse Ox 98.2 F 82 18 110/65 96 09/06/18 07:30 09/06/18 07:30 09/06/18 07:30 09/06/18 07:30 09/06/18 07:30 Intake and Output: 09/06/18 09/06/18 06:59 18:59 Intake Total 120 Output Total 650 Balance -530 - Medications Medications: Current Medications Heparin Sodium (Porcine) (Heparin) 5,000 units SC Q8 GREGORY Last Admin: 09/06/18 06:46 Dose: 5,000 units Hydromorphone HCl (Dilaudid) 1 mg IVP Q4H PRN PRN Reason: Pain, severe (8-10) Last Admin: 09/06/18 08:46 Dose: 1 mg Ibuprofen (Motrin Tab) 600 mg PO Q6H PRN PRN Reason: Pain, Mild (1-3) Last Admin: 09/02/18 12:58 Dose: 600 mg Oxycodone HCl (Oxycodone Immediate Release Tab) 5 mg PO Q6 PRN PRN Reason: Pain, moderate (4-7) Last Admin: 09/04/18 20:14 Dose: 5 mg - Labs Labs: 09/06/18 08:24 09/05/18 07:06 PT 11.3 SECONDS (9.7-12.2) 09/01/18 16:06 INR 1.0 09/01/18 16:06 APTT 30 SECONDS (21-34) 09/01/18 16:06 - Constitutional Appears: Well, Non-toxic, No Acute Distress - Head Exam Head Exam: ATRAUMATIC, NORMOCEPHALIC - Extremities Exam Additional comments: Dressing to the Right leg clean, dry and intact Sensation intact patient able to wiggle digits - Neurological Exam Neurological Exam: Alert, Awake, Oriented x3 - Psychiatric Exam Psychiatric exam: Normal Affect, Normal Mood Assessment and Plan - Assessment and Plan (Free Text) Assessment: 38 y/o male 3 days s/p right lower extremity application of external fixator for comminuted intraarticular tibia fracture Plan: Patient seen and evaluated at bedside Discussed plan with Dr. Armando Surgical dressings kept intact- next change Friday09/07/18 Pt to be NWB at all times with use of crutches Likely to return to OR within 1-2 weeks for ORIF of tibia fracture Pt stable for D/C to rehab facility; D/C home not advised as patient lives on 4th floor walkup and is a fall risk Pending discharge to [facility] Will continue to follow patient in house
[2018-09-06 08:55] LABS: BLOOD UREA NITROGEN 12 mg/dL (9-20); GFR NON-AFRICAN AMERICAN > 60
[2018-09-06 08:56] LABS: ALB/GLOB RATIO 1.3 (1.0-2.1); ALBUMIN 4.4 g/dL (3.5-5.0); ALT/SGPT 25 U/L (21-72); AST/SGOT 34 U/L (17-59)
--- NOTE | 2018-09-06 10:31 | CP.PCM.PN ---
Subjective - Date & Time of Evaluation Date of Evaluation: 09/06/18 Time of Evaluation: 10:00 - Subjective Subjective: Patient was seen and examined by me. The patient was not in any acute distress. No issues overnight He reported the pain was controlled. This is a 38 year old male who is status post external fixator placement on 09/03 for the right lower extremity for a comminuted intra-articular tibial fracture. There are plans for further surgery later this upcoming week. It has been suggested he be discharged to [facility] for the time being, however due to his social situation he remains in hospital. Objective - Vital Signs/Intake and Output Vital Signs (last 24 hours): Temp Pulse Resp BP Pulse Ox 98.2 F 82 18 110/65 96 09/06/18 07:30 09/06/18 07:30 09/06/18 07:30 09/06/18 07:30 09/06/18 07:30 Intake and Output: 09/06/18 09/06/18 06:59 18:59 Intake Total 120 Output Total 650 Balance -530 - Medications Medications: Current Medications Heparin Sodium (Porcine) (Heparin) 5,000 units SC Q8 GREGORY Last Admin: 09/06/18 06:46 Dose: 5,000 units Hydromorphone HCl (Dilaudid) 1 mg IVP Q4H PRN PRN Reason: Pain, severe (8-10) Last Admin: 09/06/18 08:46 Dose: 1 mg Ibuprofen (Motrin Tab) 600 mg PO Q6H PRN PRN Reason: Pain, Mild (1-3) Last Admin: 09/02/18 12:58 Dose: 600 mg Oxycodone HCl (Oxycodone Immediate Release Tab) 5 mg PO Q6 PRN PRN Reason: Pain, moderate (4-7) Last Admin: 09/04/18 20:14 Dose: 5 mg - Labs Labs: 09/06/18 08:24 09/06/18 08:24 PT 11.3 SECONDS (9.7-12.2) 09/01/18 16:06 INR 1.0 09/01/18 16:06 APTT 30 SECONDS (21-34) 09/01/18 16:06 - Constitutional Appears: Well, No Acute Distress - Head Exam Head Exam: NORMAL INSPECTION, NORMOCEPHALIC - Eye Exam Eye Exam: EOMI, Normal appearance - Respiratory Exam Respiratory Exam: Clear to Ausculation Bilateral, NORMAL BREATHING PATTERN - Cardiovascular Exam Cardiovascular Exam: REGULAR RHYTHM - GI/Abdominal Exam GI & Abdominal Exam: Soft, Normal Bowel Sounds - Neurological Exam Neurological Exam: Alert, Awake, Oriented x3 Neuro motor strength exam: Left Upper Extremity: 5, Right Upper Extremity: 5 - Psychiatric Exam Psychiatric exam: Normal Affect, Normal Mood - Skin Skin Exam: Normal Color, Warm Assessment and Plan - Assessment and Plan (Free Text) Assessment: Comminuted intra articular distal tibial fracture s/p Fall 09/06: Because of social situation and lack of insurance he can't go to [facility] and it appears he is going to remain in the hospital. 09/05: PT recommended [facility] however given that he will need additional procedure in the next one to two weeks the patient currently remains in the hosptial that time. Lab work stable, pain controlled at the moment. From previous: Imaging: -tibia fibula right xray (09/01/18): comminuted intra articular distal tibial fracture -right knee xray: no evidence of acute displaced fracture nor dislocation. minimal degenerative osteoarthritis with suspected small joint effusion. -lumbar spine xray: no acute fractures -ankle xray: comminuted intra-articular fracture of the distal left tibia. Ankle mortise maintained -hip/pelvis xray: no demonstrated fracture or dislocation -CT right LE without contrast: mildly displaced comminuted intra-articular fracture distal right tibia. ankle mortise maintained. surrounding soft tissue swelling. no other definitive fractures are identified. Dr. Armando, podiatry consulted, help appreciated -S/p application of right ankle external fixator in OR 09/03 with podiatry --Patient planned for second procedure in1-2 weeks for ORIF -Podiatry had recommended d/c to [facility] earlier this AM, however patient unable to be transferred to [facility] due to insurance reasons. Therefore we will continue to follow the case inpatient along with podiatry. -Patient is NWB - patient had crutch training with PT -Pt to remain NWB on RLE and continue use of crutches -Continue PT -EKG- NSR Meds: * Dilaudid 1 mg ivp q4h prn for severe pain * Oxycodone 5mg po q6h prn for moderate pain * Ibuprofen 600mg po q6h prn Cardiac Risk Index in Non cardiac Surgery Score: 0 indicates 6% risk of complications patient is low risk for non cardiac surgery Incidental lung nodule on Chest XR - Chest XR 09/02: Right upper lobe pulmonary nodule. Possible calcified granulomas in the left upper lobe. Consider further evaluation with computed tomography of the chest. - Patient denies history of tobacco us, reports no pulmonary symptoms - Would recommend follow with primary for repeat follow up imaging to monitor for progression Prophylaxis SCD on other leg GI prophylaxis
[2018-09-06] MEDS ORDERED: oxyCODONE 5 mg Immediate Release Tab PO PRN (18:54)
[2018-09-07 00:47] VITALS: RESP 20
[2018-09-07] MEDS: HYDROmorphone 1 mg/ml ISec IVP PRN ×3 (03:13→12:57)
--- NOTE | 2018-09-07 07:29 | CP.PCM.PN ---
<JosefinaluisaPierre - Last Filed: 09/07/18 17:26> Subjective - Date & Time of Evaluation Date of Evaluation: 09/07/18 Time of Evaluation: 07:28 - Subjective Subjective: HOSPITALIST SERVICE Pt seen and examined at bedside. Complains of soreness at site of surgery. Pt is able to feel and move his toes, no signs of ascute swelling now color change or temperature changes, denies fevers chills cp sob, denies diarrhea Objective - Vital Signs/Intake and Output Vital Signs (last 24 hours): Temp Pulse Resp BP Pulse Ox 99 F 88 20 112/68 95 09/07/18 00:00 09/07/18 03:00 09/07/18 00:00 09/07/18 03:00 09/07/18 00:00 Intake and Output: 09/07/18 09/07/18 06:59 18:59 Output Total 300 Balance -300 - Medications Medications: Current Medications Hydromorphone HCl (Dilaudid) 1 mg IVP Q4H PRN PRN Reason: Pain, severe (8-10) Last Admin: 09/07/18 03:13 Dose: 1 mg Ibuprofen (Motrin Tab) 600 mg PO Q6H PRN PRN Reason: Pain, Mild (1-3) Last Admin: 09/02/18 12:58 Dose: 600 mg Oxycodone HCl (Oxycodone Immediate Release Tab) 5 mg PO Q6 PRN PRN Reason: Pain, moderate (4-7) Last Admin: 09/06/18 21:12 Dose: 5 mg - Labs Labs: 09/06/18 08:24 09/06/18 08:24 PT 11.3 SECONDS (9.7-12.2) 09/01/18 16:06 INR 1.0 09/01/18 16:06 APTT 30 SECONDS (21-34) 09/01/18 16:06 - Additional Findings Additional findings: - Constitutional Appears: Well, No Acute Distress - Head Exam Head Exam: NORMAL INSPECTION, NORMOCEPHALIC - Eye Exam Eye Exam: EOMI, Normal appearance - Respiratory Exam Respiratory Exam: Clear to Ausculation Bilateral, NORMAL BREATHING PATTERN - Cardiovascular Exam Cardiovascular Exam: REGULAR RHYTHM, L popliteal pulse present - GI/Abdominal Exam GI & Abdominal Exam: Soft, Normal Bowel Sounds - Neurological Exam Neurological Exam: Alert, Awake, Oriented x3, sensation intact in toes of L foot. Neuro motor strength exam: Left Upper Extremity: 5, Right Upper Extremity: 5 - Psychiatric Exam Psychiatric exam: Normal Affect, Normal Mood - Skin Skin Exam: Normal Color, Warm Assessment and Plan - Assessment and Plan (Free Text) Assessment: 38M admitted for Distal Tibial fracture, R ankle External Fixation on 09/03, scheduled for ORIF in 1 week likely 09/18 PLAN Comminuted intra articular distal tibial fracture s/p Fall Dr. Armando, podiatry consulted, help appreciated -S/p application of right ankle external fixator in OR 09/03 with podiatry --Patient planned for second procedure in1-2 weeks for ORIF likely 09/18 -Podiatry had recommended d/c to [facility] earlier this AM, however patient unable to be transferred to [facility] due to insurance reasons. Therefore we will continue to follow the case inpatient along with podiatry. * Dilaudid 1 mg ivp q12h prn for severe pain * tramadol 50mg po q6h prn for moderate pain * Mobic po q6h prn * Pepcid 20 PO Imaging: -tibia fibula right xray (09/01/18): comminuted intra articular distal tibial fracture -right knee xray: no evidence of acute displaced fracture nor dislocation. minimal degenerative osteoarthritis with suspected small joint effusion. -lumbar spine xray: no acute fractures -ankle xray: comminuted intra-articular fracture of the distal left tibia. Ankle mortise maintained -hip/pelvis xray: no demonstrated fracture or dislocation -CT right LE without contrast: mildly displaced comminuted intra-articular fracture distal right tibia. ankle mortise maintained. surrounding soft tissue swelling. no other definitive fractures are identified. -Patient is NWB - patient had crutch training with PT -Pt to remain NWB on RLE and continue use of crutches -Continue PT -EKG- NSR Meds: Cardiac Risk Index in Non cardiac Surgery Score: 0 indicates 6% risk of complications patient is low risk for non cardiac surgery Incidental lung nodule on Chest XR - Chest XR 09/02: Right upper lobe pulmonary nodule. Possible calcified granulomas in the left upper lobe. Consider further evaluation with computed tomography of the chest. - Patient denies history of tobacco us, reports no pulmonary symptoms - Would recommend follow with primary for repeat follow up imaging to monitor for progression Prophylaxis SCD on other leg GI prophylaxis- Pepcid PO DISPO: Pt doesnt qualify for [facility] so holding until ready for ORIF <Michelle Mota - Last Filed: 09/07/18 19:19> Objective - Vital Signs/Intake and Output Vital Signs (last 24 hours): Temp Pulse Resp BP Pulse Ox 98.2 F 82 20 109/68 94 L 09/07/18 15:26 09/07/18 15:26 09/07/18 15:26 09/07/18 15:26 09/07/18 15:26 Intake and Output: 09/07/18 09/08/18 18:59 06:59 Output Total 300 Balance -300 - Medications Medications: Current Medications Celecoxib (Celebrex) 100 mg PO Q12 PRN PRN Reason: Pain, moderate (4-7) Famotidine (Pepcid) 20 mg PO DAILY GREGORY Last Admin: 09/07/18 13:37 Dose: 20 mg Hydromorphone HCl (Dilaudid) 1 mg IVP Q12 PRN PRN Reason: Pain, severe (8-10) Last Admin: 09/07/18 12:57 Dose: 1 mg Tramadol HCl (Ultram) 50 mg PO Q6 PRN PRN Reason: Pain, moderate (4-7) Last Admin: 09/07/18 18:16 Dose: 50 mg - Labs Labs: 09/07/18 07:32 09/07/18 07:32 PT 11.3 SECONDS (9.7-12.2) 09/01/18 16:06 INR 1.0 09/01/18 16:06 APTT 30 SECONDS (21-34) 09/01/18 16:06 Attending/Attestation - Attestation I have personally seen and examined this patient.: Yes I have fully participated in the care of the patient.: Yes I have reviewed all pertinent clinical information, including history, physical exam and plan: Yes Notes (Text): seen and examined by me with the resident and he is complaining of leg pain pain meds control his pain Discussed about avoid narcotics with the resident patient will be going for ORIF on 09/03
[2018-09-07 07:48] LABS: HEMOGLOBIN 15.3 g/dL (12.0-18.0); MEAN CELL VOLUME 85.5 fL (80.0-94.0); MEAN CORPUSCULAR HEMOGLOBIN 28.2 pg (27.0-31.0); MEAN PLATELET VOLUME 7.4 fL (7.2-11.7); RBC 5.44 Mil/uL (4.40-5.90); RED CELL DISTRIBUTION WIDTH 14.2 % (11.5-14.5); WHITE BLOOD COUNT 4.8 K/uL (4.8-10.8)
[2018-09-07 08:22] LABS: ALB/GLOB RATIO 1.3 (1.0-2.1); ALBUMIN 4.3 g/dL (3.5-5.0); ALT/SGPT 40 U/L (21-72); AST/SGOT 37 U/L (17-59); BLOOD UREA NITROGEN 14 mg/dL (9-20); GFR NON-AFRICAN AMERICAN > 60
--- NOTE | 2018-09-07 19:33 | CP.PCM.PN ---
Subjective - Date & Time of Evaluation Date of Evaluation: 09/07/18 Time of Evaluation: 13:30 - Subjective Subjective: Podiatry Progress Note for Dr. Armando 38 y/o male seen at bedside today 4 days s/p application of external fixator to right lower extremity for comminuted intraarticular tibia fracture. Patient is AAO x 3 and NAD, resting comfortably in bed. Says that he continues to experience some pain but that it is relatively well controlled. Denies any acute overnight events or new pedal complaints at this time. Denies any recent N/V/F/C/CP/SOB/D Objective - Vital Signs/Intake and Output Vital Signs (last 24 hours): Temp Pulse Resp BP Pulse Ox 98.2 F 82 20 109/68 94 L 09/07/18 15:26 09/07/18 15:26 09/07/18 15:26 09/07/18 15:26 09/07/18 15:26 Intake and Output: 09/07/18 09/08/18 18:59 06:59 Output Total 300 Balance -300 - Medications Medications: Current Medications Celecoxib (Celebrex) 100 mg PO Q12 PRN PRN Reason: Pain, moderate (4-7) Famotidine (Pepcid) 20 mg PO DAILY [facility] Last Admin: 09/07/18 13:37 Dose: 20 mg Hydromorphone HCl (Dilaudid) 1 mg IVP Q12 PRN PRN Reason: Pain, severe (8-10) Last Admin: 09/07/18 12:57 Dose: 1 mg Tramadol HCl (Ultram) 50 mg PO Q6 PRN PRN Reason: Pain, moderate (4-7) Last Admin: 09/07/18 18:16 Dose: 50 mg - Labs Labs: 09/07/18 07:32 09/07/18 07:32 PT 11.3 SECONDS (9.7-12.2) 09/01/18 16:06 INR 1.0 09/01/18 16:06 APTT 30 SECONDS (21-34) 09/01/18 16:06 - Constitutional Appears: Well, Non-toxic, No Acute Distress - Extremities Exam Additional comments: RLE focused exam: Vasc: DP/PT pulses fully palpable 2/4. Skin temperature warm to warm from proximal to distal WNL. CFT < 3 seconds to all digits b/l. Moderate, non-pitting edema noted to RLE Neuro: Epicritic and protective sensation grossly intact Derm: No open lesions, wounds, maceration, xerosis, abnormal pigmentation or abnormal growths noted. External fixator noted to be intact with no evidence of pin tract infections appreciated MSK: Deferred due to nature of injury - Neurological Exam Neurological Exam: Alert, Awake, Oriented x3 - Psychiatric Exam Psychiatric exam: Normal Affect, Normal Mood Assessment and Plan - Assessment and Plan (Free Text) Assessment: 38 y/o male seen at bedside today 4 days s/p application of external fixator to right lower extremity for comminuted intraarticular tibia fracture Plan: Patient seen and evaluated with Dr. Armando Afebrile, absent leukocytosis Continue pain medication per medicine team CT of RLE ordered Patient will be brought back to OR for removal of external fixator and ORIF Tentative date of procedure is 09/18 pending patients levels of edema Pin sites dressed with xeroform Leg dressed with Watson compression and posterior splint Patient to remain NWB Podiatry will continue to follow while patient in house
[2018-09-08] MEDS: HYDROmorphone 1 mg/ml ISec IVP PRN ×2 (01:07→14:09)
[2018-09-08 06:40] LABS: HEMOGLOBIN 15.4 g/dL (12.0-18.0); MEAN CELL VOLUME 85.4 fL (80.0-94.0); MEAN CORPUSCULAR HEMOGLOBIN 28.3 pg (27.0-31.0); MEAN CORPUSCULAR HGB CONC 33.1 g/dL (33.0-37.0); MEAN PLATELET VOLUME 7.3 fL (7.2-11.7); RBC 5.43 Mil/uL (4.40-5.90); WHITE BLOOD COUNT 5.6 K/uL (4.8-10.8)
--- NOTE | 2018-09-08 07:46 | CP.PCM.PN ---
Subjective - Date & Time of Evaluation Date of Evaluation: 09/08/18 Time of Evaluation: 07:43 - Subjective Subjective: HOSPITALIST SERVICE Pt s/e at bedside, reports increased pain since dilaudid was tapered down to q12. Pt reports abiloity to move and feel his toes, denies new sensations of warmth or pressure. Denies CP, SOB F/C/N/V/ Diarrhea. Pt understands current status and agrees w/ plan Objective - Vital Signs/Intake and Output Vital Signs (last 24 hours): Temp Pulse Resp BP Pulse Ox 98.8 F 95 H 20 106/62 95 09/07/18 23:00 09/07/18 23:00 09/07/18 23:00 09/07/18 23:00 09/07/18 23:00 Intake and Output: 09/08/18 09/08/18 06:59 18:59 Intake Total 240 Output Total 900 Balance -660 - Medications Medications: Current Medications Celecoxib (Celebrex) 100 mg PO Q12 PRN PRN Reason: Pain, moderate (4-7) Famotidine (Pepcid) 20 mg PO DAILY [facility] Last Admin: 09/07/18 13:37 Dose: 20 mg Hydromorphone HCl (Dilaudid) 1 mg IVP Q12 PRN PRN Reason: Pain, severe (8-10) Last Admin: 09/08/18 01:07 Dose: 1 mg Tramadol HCl (Ultram) 50 mg PO Q6 PRN PRN Reason: Pain, moderate (4-7) Last Admin: 09/08/18 05:27 Dose: 50 mg - Labs Labs: 09/08/18 06:32 09/07/18 07:32 PT 11.3 SECONDS (9.7-12.2) 09/01/18 16:06 INR 1.0 09/01/18 16:06 APTT 30 SECONDS (21-34) 09/01/18 16:06 - Additional Findings Additional findings: - Constitutional Appears: Well, No Acute Distress - Head Exam Head Exam: NORMAL INSPECTION, NORMOCEPHALIC - Eye Exam Eye Exam: EOMI, Normal appearance - Respiratory Exam Respiratory Exam: Clear to Ausculation Bilateral, NORMAL BREATHING PATTERN - Cardiovascular Exam Cardiovascular Exam: REGULAR RHYTHM, L popliteal pulse present - GI/Abdominal Exam GI & Abdominal Exam: Soft, Normal Bowel Sounds - Neurological Exam Neurological Exam: Alert, Awake, Oriented x3, sensation intact in toes of L foot. Neuro motor strength exam: Left Upper Extremity: 5, Right Upper Extremity: 5 - Psychiatric Exam Psychiatric exam: Normal Affect, Normal Mood - Skin Skin Exam: Normal Color, Warm Assessment and Plan - Assessment and Plan (Free Text) Assessment: 38M admitted for Distal Tibial fracture, R ankle External Fixation on 09/03, scheduled for ORIF in 1 week likely 09/18 PLAN Comminuted intra articular distal tibial fracture s/p Fall Dr. Armando, podiatry consulted, help appreciated -S/p application of right ankle external fixator in OR 09/03 with podiatry --Patient planned for second procedure in1-2 weeks for ORIF likely 09/18 -Podiatry had recommended d/c to [facility] earlier this AM, however patient unable to be transferred to [facility] due to insurance reasons. Therefore we will continue to follow the case inpatient along with podiatry. * Toradol 30 ivp q8h prn for severe pain * tramadol 50mg po q12h prn for moderate pain * Celebrex 100mg PO q12 prn * Pepcid 20 PO Imaging: -tibia fibula right xray (09/01/18): comminuted intra articular distal tibial fracture -right knee xray: no evidence of acute displaced fracture nor dislocation. minimal degenerative osteoarthritis with suspected small joint effusion. -lumbar spine xray: no acute fractures -ankle xray: comminuted intra-articular fracture of the distal left tibia. Ankle mortise maintained -hip/pelvis xray: no demonstrated fracture or dislocation -CT right LE without contrast: mildly displaced comminuted intra-articular fracture distal right tibia. ankle mortise maintained. surrounding soft tissue swelling. no other definitive fractures are identified. -Patient is NWB - patient had crutch training with PT -Pt to remain NWB on RLE and continue use of crutches -Continue PT -EKG- NSR Meds: Cardiac Risk Index in Non cardiac Surgery Score: 0 indicates 6% risk of complications patient is low risk for non cardiac surgery Incidental lung nodule on Chest XR - Chest XR 09/02: Right upper lobe pulmonary nodule. Possible calcified granulomas in the left upper lobe. Consider further evaluation with computed tomography of the chest. - Patient denies history of tobacco us, reports no pulmonary symptoms - Would recommend follow with primary for repeat follow up imaging to monitor for progression Prophylaxis SCD on other leg GI prophylaxis- Pepcid PO DISPO: Pt doesnt qualify for [facility] so holding until ready for ORIF
[2018-09-08 07:49] LABS: ALB/GLOB RATIO 1.3 (1.0-2.1); ALBUMIN 4.3 g/dL (3.5-5.0); ALT/SGPT 50 U/L (21-72); AST/SGOT 41 U/L (17-59); BLOOD UREA NITROGEN 13 mg/dL (9-20); GFR NON-AFRICAN AMERICAN > 60
--- NOTE | 2018-09-08 11:52 | CT ---
CT right lower extremity HISTORY: Fracture. COMPARISON: X-ray dated 09/03/2018 Findings: External fixators in place extending through the mid medullary cavity of the tibia as well as within talus and calcaneus. Again identified is a markedly comminuted intra-articular fracture deformity through the distal tibia extending from the level of the metaphysis circumferentially to the intra-articular surface of the tibiotalar joint space. Multiple areas of comminution involving the fracture site. Reticulation and edema within the circumferential subcutaneous soft tissues. Impression: External fixators in place extending through the mid medullary cavity of the tibia as well as within talus and calcaneus. Again identified is a markedly comminuted intra-articular fracture deformity through the distal tibia extending from the level of the metaphysis circumferentially to the intra-articular surface of the tibiotalar joint space. Multiple areas of comminution involving the fracture site. Reticulation and edema within the circumferential subcutaneous soft tissues.
--- NOTE | 2018-09-08 19:07 | CP.PCM.PN ---
<Rafael Fernandez - Last Filed: 09/08/18 19:04> Subjective - Date & Time of Evaluation Date of Evaluation: 09/08/18 Time of Evaluation: 14:00 - Subjective Subjective: Podiatry Progress Note for Dr. Armando 38 y/o male seen at bedside today 5 days s/p application of external fixator to right lower extremity for comminuted intraarticular tibia fracture. Patient is AAO x 3 and NAD, resting comfortably in bed. Says that he continues to experience some pain but that it is relatively well controlled and improved since yesterday. Denies any acute overnight events or new pedal complaints at this time. Denies any recent N/V/F/C/CP/SOB/D Objective - Vital Signs/Intake and Output Vital Signs (last 24 hours): Temp Pulse Resp BP Pulse Ox 98.2 F 86 20 96/60 L 93 L 09/08/18 16:05 09/08/18 16:05 09/08/18 16:05 09/08/18 16:05 09/08/18 16:05 - Medications Medications: Current Medications Celecoxib (Celebrex) 100 mg PO Q12 PRN PRN Reason: Pain, moderate (4-7) Famotidine (Pepcid) 20 mg PO DAILY [facility] Last Admin: 09/08/18 10:40 Dose: 20 mg Ketorolac Tromethamine (Toradol) 30 mg IVP Q8 PRN PRN Reason: Pain, moderate (4-7) Tramadol HCl (Ultram) 50 mg PO Q12 [facility] - Labs Labs: 09/08/18 06:32 09/08/18 06:32 PT 11.3 SECONDS (9.7-12.2) 09/01/18 16:06 INR 1.0 09/01/18 16:06 APTT 30 SECONDS (21-34) 09/01/18 16:06 - Constitutional Appears: Well, Non-toxic, No Acute Distress - Extremities Exam Additional comments: Dressings left clean, dry and intact to right leg - Neurological Exam Neurological Exam: Alert, Awake, Oriented x3 - Psychiatric Exam Psychiatric exam: Normal Affect, Normal Mood Assessment and Plan - Assessment and Plan (Free Text) Assessment: 38 y/o male seen at bedside today 5 days s/p application of external fixator to right lower extremity for comminuted intraarticular tibia fracture Plan: Patient seen and evaluated Plan discussed with Dr. Armando Continue pain medication per medicine team CT of RLE: Comminuted intra-articular fracture of the distal tibia Patient will be brought back to OR for removal of external fixator and ORIF Tentative date of procedure is 09/18 pending patients levels of edema Patient to remain NWB Podiatry will continue to follow while patient in house <Peri Armando - Last Filed: 09/09/18 10:14> Subjective - Subjective Subjective: Reviewed with resident and agree with assessment and plan. Objective - Vital Signs/Intake and Output Vital Signs (last 24 hours): Temp Pulse Resp BP Pulse Ox 97.9 F 78 20 105/67 95 09/09/18 07:20 09/09/18 07:20 09/09/18 07:20 09/09/18 07:20 09/09/18 07:20 Intake and Output: 09/09/18 09/09/18 06:59 18:59 Intake Total 380 Output Total 950 Balance -570 - Medications Medications: Current Medications Famotidine (Pepcid) 20 mg PO DAILY [facility] Last Admin: 09/09/18 09:50 Dose: 20 mg Heparin Sodium (Porcine) (Heparin) 5,000 units SC Q8 [facility] Last Admin: 09/09/18 09:50 Dose: 5,000 units Ketorolac Tromethamine (Toradol) 30 mg IVP Q8 PRN PRN Reason: Pain, moderate (4-7) Last Admin: 09/09/18 01:21 Dose: 30 mg Tramadol HCl (Ultram) 50 mg PO Q12 [facility] Last Admin: 09/08/18 22:02 Dose: 50 mg - Labs Labs: 09/09/18 06:50 09/09/18 06:50 PT 11.3 SECONDS (9.7-12.2) 09/01/18 16:06 INR 1.0 09/01/18 16:06 APTT 30 SECONDS (21-34) 09/01/18 16:06
--- NOTE | 2018-09-09 07:12 | CP.PCM.PN ---
Subjective - Date & Time of Evaluation Date of Evaluation: 09/09/18 Time of Evaluation: 07:10 - Subjective Subjective: HOSPITALIST SERVICE Pt seen and examined at bedside. Pt reports L sided calf soreness. Pt reports pain well controlled. Pt feels toes and can wiggle them. Denies CP, SOB FC [place] Objective - Vital Signs/Intake and Output Vital Signs (last 24 hours): Temp Pulse Resp BP Pulse Ox 98.9 F 85 20 108/66 94 L 09/08/18 23:00 09/08/18 23:00 09/08/18 23:00 09/08/18 23:00 09/08/18 23:00 Intake and Output: 09/09/18 09/09/18 06:59 18:59 Intake Total 380 Output Total 950 Balance -570 - Medications Medications: Current Medications Famotidine (Pepcid) 20 mg PO DAILY [facility] Last Admin: 09/08/18 10:40 Dose: 20 mg Heparin Sodium (Porcine) (Heparin) 5,000 units SC Q8 [facility] Ketorolac Tromethamine (Toradol) 30 mg IVP Q8 PRN PRN Reason: Pain, moderate (4-7) Last Admin: 09/09/18 01:21 Dose: 30 mg Tramadol HCl (Ultram) 50 mg PO Q12 [facility] Last Admin: 09/08/18 22:02 Dose: 50 mg - Labs Labs: 09/08/18 06:32 09/08/18 06:32 PT 11.3 SECONDS (9.7-12.2) 09/01/18 16:06 INR 1.0 09/01/18 16:06 APTT 30 SECONDS (21-34) 09/01/18 16:06 - Additional Findings Additional findings: - Constitutional Appears: Well, No Acute Distress - Head Exam Head Exam: NORMAL INSPECTION, NORMOCEPHALIC - Eye Exam Eye Exam: EOMI, Normal appearance - Respiratory Exam Respiratory Exam: Clear to Ausculation Bilateral, NORMAL BREATHING PATTERN - Cardiovascular Exam Cardiovascular Exam: REGULAR RHYTHM, L popliteal pulse present - GI/Abdominal Exam GI & Abdominal Exam: Soft, Normal Bowel Sounds - Neurological Exam Neurological Exam: Alert, Awake, Oriented x3, sensation intact in toes of L foot. Neuro motor strength exam: Left Upper Extremity: 5, Right Upper Extremity: 5 -MSK Pain when compressing L calf - Psychiatric Exam Psychiatric exam: Normal Affect, Normal Mood - Skin Skin Exam: Normal Color, Warm Assessment and Plan - Assessment and Plan (Free Text) Assessment: Assessment and Plan - Assessment and Plan (Free Text) Assessment: 38M admitted for Distal Tibial fracture, R ankle External Fixation on 09/03, sche duled for ORIF in 1 week likely 09/18 PLAN Comminuted intra articular distal tibial fracture s/p Fall Dr. Armando, podiatry consulted, help appreciated -S/p application of right ankle external fixator in OR 09/03 with podiatry --Patient planned for second procedure in1-2 weeks for ORIF likely 09/18 -Podiatry had recommended d/c to [facility] earlier this AM, however patient unable to be transferred to [facility] due to insurance reasons. Therefore we will continue to follow the case inpatient along with podiatry. * Toradol 30 ivp q8h prn for severe pain * tramadol 50mg po q12h prn for moderate pain * Pepcid 20 PO Imaging: -tibia fibula right xray (09/01/18): comminuted intra articular distal tibial fracture -right knee xray: no evidence of acute displaced fracture nor dislocation. minimal degenerative osteoarthritis with suspected small joint effusion. -lumbar spine xray: no acute fractures -ankle xray: comminuted intra-articular fracture of the distal left tibia. Ankle mortise maintained -hip/pelvis xray: no demonstrated fracture or dislocation -CT right LE without contrast: mildly displaced comminuted intra-articular fracture distal right tibia. ankle mortise maintained. surrounding soft tissue swelling. no other definitive fractures are identified. -09/09 Left LE Duplex: -Patient is NWB - patient had crutch training with PT -Pt to remain NWB on RLE and continue use of crutches -Continue PT -EKG- NSR Cardiac Risk Index in Non cardiac Surgery Score: 0 indicates 6% risk of complications patient is low risk for non cardiac surgery Incidental lung nodule on Chest XR - Chest XR 09/02: Right upper lobe pulmonary nodule. Possible calcified granulomas in the left upper lobe. Consider further evaluation with computed tomography of the chest. - Patient denies history of tobacco us, reports no pulmonary symptoms - Would recommend follow with primary for repeat follow up imaging to monitor for progression Prophylaxis SCD on other leg GI prophylaxis- Pepcid PO DISPO: Pt doesnt qualify for [facility] so holding until ready for ORIF
[2018-09-09 07:14] LABS: HEMOGLOBIN 15.8 g/dL (12.0-18.0); MEAN CELL VOLUME 85.9 fL (80.0-94.0); MEAN CORPUSCULAR HEMOGLOBIN 28.3 pg (27.0-31.0); MEAN PLATELET VOLUME 7.2 fL (7.2-11.7); RBC 5.59 Mil/uL (4.40-5.90); WHITE BLOOD COUNT 4.6 K/uL (4.8-10.8)
[2018-09-09 07:39] LABS: ALB/GLOB RATIO 1.3 (1.0-2.1); ALBUMIN 4.2 g/dL (3.5-5.0); ALT/SGPT 48 U/L (21-72); AST/SGOT 35 U/L (17-59); BLOOD UREA NITROGEN 17 mg/dL (9-20); CALCIUM 9.4 mg/dl (8.6-10.4); GFR NON-AFRICAN AMERICAN > 60
--- NOTE | 2018-09-09 13:42 | CP.PCM.DIS ---
Provider - Provider Date of Admission: 09/01/18 17:23 Attending physician: Michelle Mota MD Consults: 09/01/18 15:46 Physician Consult Stat Comment: Consulting Provider: Peri Armando Consulting Physician: Peri Armando Reason for Consult: tibial fracture Time Spent in preparation of Discharge (in minutes): 45 Diagnosis - Discharge Diagnosis (1) Fracture of distal end of left tibia Status: Acute Priority: High Hospital Course - Lab Results Lab Results: Most Recent Lab Values WBC 4.6 K/uL (4.8-10.8) L 09/09/18 06:50 RBC 5.59 Mil/uL (4.40-5.90) 09/09/18 06:50 Hgb 15.8 g/dL (12.0-18.0) 09/09/18 06:50 Hct 48.0 % (35.0-51.0) 09/09/18 06:50 MCV 85.9 fL (80.0-94.0) 09/09/18 06:50 MCH 28.3 pg (27.0-31.0) 09/09/18 06:50 MCHC 33.0 g/dL (33.0-37.0) 09/09/18 06:50 RDW 14.0 % (11.5-14.5) 09/09/18 06:50 Plt Count 310 K/uL (130-400) 09/09/18 06:50 MPV 7.2 fL (7.2-11.7) 09/09/18 06:50 Neut % (Auto) 73.6 % (50.0-75.0) 09/01/18 16:06 Lymph % (Auto) 18.0 % (20.0-40.0) L 09/01/18 16:06 [place] % (Auto) 7.5 % (0.0-10.0) 09/01/18 16:06 Eos % (Auto) 0.4 % (0.0-4.0) 09/01/18 16:06 Baso % (Auto) 0.5 % (0.0-2.0) 09/01/18 16:06 Neut # (Auto) 6.0 K/uL (1.8-7.0) 09/01/18 16:06 Lymph # (Auto) 1.5 K/uL (1.0-4.3) 09/01/18 16:06 [place] # (Auto) 0.6 K/uL (0.0-0.8) 09/01/18 16:06 Eos # (Auto) 0.0 K/uL (0.0-0.7) 09/01/18 16:06 Baso # (Auto) 0.0 K/uL (0.0-0.2) 09/01/18 16:06 PT 11.3 SECONDS (9.7-12.2) 09/01/18 16:06 INR 1.0 09/01/18 16:06 APTT 30 SECONDS (21-34) 09/01/18 16:06 Sodium 139 mmol/L (132-148) 09/09/18 06:50 Potassium 4.1 mmol/L (3.6-5.2) 09/09/18 06:50 Chloride 102 mmol/L (98-107) 09/09/18 06:50 Carbon Dioxide 29 mmol/L (22-30) 09/09/18 06:50 Anion Gap 12 (10-20) 09/09/18 06:50 BUN 17 mg/dL (9-20) 09/09/18 06:50 Creatinine 0.7 mg/dL (0.8-1.5) L 09/09/18 06:50 Est GFR ( Amer) > 60 09/09/18 06:50 Est GFR (Non-Af Amer) > 60 09/09/18 06:50 Random Glucose 100 mg/dL (75-110) 09/09/18 06:50 Calcium 9.4 mg/dl (8.6-10.4) 09/09/18 06:50 Phosphorus 5.2 mg/dL (2.5-4.5) H 09/09/18 06:50 Magnesium 2.1 mg/dL (1.6-2.3) 09/09/18 06:50 Total Bilirubin 1.1 mg/dL (0.2-1.3) 09/09/18 06:50 AST 35 U/L (17-59) 09/09/18 06:50 ALT 48 U/L (21-72) 09/09/18 06:50 Alkaline Phosphatase 99 U/L (38-126) 09/09/18 06:50 Total Protein 7.5 g/dL (6.3-8.3) 09/09/18 06:50 Albumin 4.2 g/dL (3.5-5.0) 09/09/18 06:50 Globulin 3.3 gm/dL (2.2-3.9) 09/09/18 06:50 Albumin/Globulin Ratio 1.3 (1.0-2.1) 09/09/18 06:50 - Hospital Course Hospital Course: HPI: Patient is a 38 year old male with no significant past medical history who 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 Patient says he thinks he fell about 6 feet onto his right side and back. Patient denies hitting his head or losing consciousness. Patient fell at about 9am yesterday, and presented to the ER about an hour later. Patient had pain in his right foot, knee, hip, and low back. Patient was found to have a right comminuted intraarticular distal tibia fracture. Patient's right lower extremity is splinted and patient is non-weight bearing. Currently patient rates his right ankle pain 9/10. Patient also complains of low back pain. Patient denies any chest pain, shortness of breath, abdominal pain, nausea, vomiting, constipation, or diarrhea. PMD: Dr. Franky Garcia All: Tylenol- anaphylaxis PMHx: denies Psurg: right arm laceration 2015 Famhx: denies Social: drinks 2-3 beers per weekend, denies tobacco and drugs Home medications: denies 38M admitted for Distal Tibial fracture, R ankle External Fixation on 09/03, scheduled for ORIF in 1 week likely 09/18 PLAN Comminuted intra articular distal tibial fracture s/p Fall Dr. Armando, podiatry consulted, help appreciated -S/p application of right ankle external fixator in OR 09/03 with podiatry --Patient planned for second procedure in1-2 weeks for ORIF likely 09/18 -Podiatry had recommended d/c to [facility] earlier this AM, however patient unable to be transferred to [facility] due to insurance reasons. Therefore we will continue to follow the case inpatient along with podiatry. * Toradol 30 ivp q8h prn for severe pain: tapered off dilaudid, percocet * tramadol 50mg po q12h prn for moderate pain * Pepcid 20 PO -Patient is NWB - patient had crutch training with PT -Pt to remain NWB on RLE and continue use of crutches -Continue PT -EKG- NSR Cardiac Risk Index in Non cardiac Surgery Score: 0 indicates 6% risk of complications patient is low risk for non cardiac surgery Incidental lung nodule on Chest XR - Chest XR 09/02: Right upper lobe pulmonary nodule. Possible calcified granulomas in the left upper lobe. Consider further evaluation with computed tomography of the chest. - Patient denies history of tobacco us, reports no pulmonary symptoms - Would recommend follow with primary for repeat follow up imaging to monitor for progression Prophylaxis SCD on other leg GI prophylaxis- Pepcid PO Imaging: -tibia fibula right xray (09/01/18): comminuted intra articular distal tibial fracture -right knee xray: no evidence of acute displaced fracture nor dislocation. minimal degenerative osteoarthritis with suspected small joint effusion. -lumbar spine xray: no acute fractures -ankle xray: comminuted intra-articular fracture of the distal left tibia. Ankle mortise maintained -hip/pelvis xray: no demonstrated fracture or dislocation -CT right LE without contrast: mildly displaced comminuted intra-articular fracture distal right tibia. ankle mortise maintained. surrounding soft tissue swelling. no other definitive fractures are identified. PLAN Patient is to be discharged home with crutches, non weight bearing on the right lower extremity. Patient is to follow up with Dr Armando in the [email or web address] within one week Patient is to follow up with Dr Rojas at [address] [place] [address] in [facility] at [facility] call [phone] within one week Patient is to take the following Rx Mobic 7.5mg PO q12 @8am and 8pm for 7 days PRN for pain Tramadol 50mg q6 PO for 5 days Pepcid AC PO daily @ 8am for GI ppx Please seek medical attention immediately if symptoms worsen of acute pain is felt in the calves/chest/legs or if short of breath Discharge Exam - Head Exam Head Exam: NORMAL INSPECTION, NORMOCEPHALIC Discharge Plan - Discharge Medications Prescriptions: Famotidine [Pepcid AC] 10 mg PO DAILY #14 tablet Meloxicam [Mobic] 7.5 mg PO Q12 #14 tab traMADol [Ultram] 50 mg PO TID #15 tab - Follow Up Plan Condition: STABLE Disposition: HOME/ ROUTINE Instructions: Ankle Fracture (DC), Famotidine, Meloxicam, Tramadol, Pin Care, Managing Pain After Surgery Additional Instructions: Patient is to be discharged home with crutches, non weight bearing on the right lower extremity. Patient is to follow up with Dr Armando in the [facility] [[email or web address]] within one week Patient is to follow up with PMD Dr Franky Victoria Please follow up with Dr Andrade at [address] [facility] call [phone] Patient is to take the following Rx Mobic 7.5mg PO q12 @8am and 8pm for 7 days PRN for pain Pepcid AC PO daily @ 8am for GI ppx Patient may take tylenol 500mg q6hr over the counter for pain relief Please seek medical attention immediately if symptoms worsen of acute pain is felt in the calves/chest/legs or if short of breath El paciente debe ser dado de susan con muletas, sin peso sobre la extremidad inferior derecha. El paciente debe hacer un seguimiento con el Dr. Armando en la [facility] dentro de celeste semana El paciente debe hacer un seguimiento con PMD, el Dr. Franky Victoria Por favor, siga con el Dr. Andrade en [facility], llame al [phone] El paciente debe hill el siguiente Rx Mobic 7.5 mg PO q12 @ 8 am y 8 pm dora 7 guerra PRN para el dolor Tramadol 50mg PO q8 @8am 12pm y 8pm 5 shaikh Pepcid AC PO diariamente a las 8 am para GI ppx El paciente puede hill tylenol 500 mg q6hr en el mostrador para aliviar el dolor Busque atencin mdica de inmediato si los sntomas empeoran del dolor saad que se siente en las pantorrillas / pecho / piernas o si falta el aliento Referrals: Moise Rojas DO [Doctor Osteopathy] - Franky Garcia MD [Medical Doctor] - Peri Armando DPM [Staff Provider] -
[2018-09-09 17:45] VITALS: BP 118/79; PULSE 83; TEMP 97.3; O2SAT 96
--- NOTE | 2018-09-09 19:52 | CP.PCM.PN ---
Subjective - Date & Time of Evaluation Date of Evaluation: 09/09/18 Time of Evaluation: 16:40 - Subjective Subjective: Podiatry Progress Note for Dr. Armando 38 y/o male seen at bedside today 6 days s/p application of external fixator to right lower extremity for comminuted intraarticular tibia fracture. Patient is AAO x 3 and NAD, resting comfortably in bed. Says that pain is improved at this time. Denies any acute overnight events or new pedal complaints at this time. Denies any recent N/V/F/C/CP/SOB/D Objective - Vital Signs/Intake and Output Vital Signs (last 24 hours): Temp Pulse Resp BP Pulse Ox 97.3 F L 83 20 118/79 96 09/09/18 15:00 09/09/18 15:00 09/09/18 15:00 09/09/18 15:00 09/09/18 15:00 - Labs Labs: 09/09/18 06:50 09/09/18 06:50 PT 11.3 SECONDS (9.7-12.2) 09/01/18 16:06 INR 1.0 09/01/18 16:06 APTT 30 SECONDS (21-34) 09/01/18 16:06 - Constitutional Appears: Well, Non-toxic, No Acute Distress - Extremities Exam Additional comments: Dressing left C/D/I to right leg - Neurological Exam Neurological Exam: Alert, Awake, Oriented x3 - Psychiatric Exam Psychiatric exam: Normal Affect, Normal Mood Assessment and Plan - Assessment and Plan (Free Text) Assessment: 38 y/o male seen at bedside today 6 days s/p application of external fixator to right lower extremity for comminuted intraarticular tibia fracture Plan: Patient seen and evaluated Per medical team, patient will be discharged today because worker's comp will no longer pay for his hospital stay Discussed with patient that he must remain strict NWB and keep foot elevated as much as possible Patient to follow up in Dr. Armando's clinic on Friday to evaluate edema ORIF tentatively scheduled for 09/18/18 Pain medications per medicine team
--- NOTE | 2018-09-10 13:36 | VASCLAB ---
Date of service: 09/09/2018 PROCEDURE: Left Lower Extremity Venous Duplex Exam. HISTORY: calf pain PRIORS: None. TECHNIQUE: Left common femoral, femoral, popliteal and posterior tibial, peroneal and great saphenous veins were evaluated. Flow was assessed with color Doppler, compressibility, assessment of phasic flow and augmentation response. Report prepared by ERLIN Loyd FINDINGS: LEFT: 1. Common Femoral Vein: 1.1. Compressibility - Fully compressible: Thrombus - None : Flow - Phasic: Augmentation -Normal: Reflux - None. 2. Femoral Vein: 2.1. Compressibility - Fully compressible: Thrombus - None: Flow - Phasic: Augmentation -Normal: Reflux - None. 3. Popliteal Vein: 3.1. Compressibility - Fully compressible: Thrombus - None: Flow - Phasic: Augmentation -Normal: Reflux - None. 4. Posterior Tibial Vein: 4.1. Compressibility - Fully compressible: Thrombus - None: Flow - Phasic: Augmentation -Normal: Reflux - None. 5. Peroneal Vein: 5.1. Compressibility - Fully compressible: Thrombus - None: Flow - Phasic: Augmentation -Normal: Reflux - None. 6. Great Saphenous Vein: 6.1. Compressibility - Fully compressible: Thrombus - None: Flow - Phasic: Augmentation - Normal: Reflux - None. OTHER FINDINGS: IMPRESSION: No evidence of deep or superficial vein thrombosis of the left lower extremity with excellent venous flow. Normal valve function noted of the left side. Normal venous flow noted in the right common femoral vein.
== END 2018-09-09 18:48 | disposition home or self-care (01) | DRG 494 ==
LOC: C.ER 10:51 → EDBD 10:51 → C.6T 17:23
PROVIDERS: ADMIT Internal Medicine; ATTEND Internal Medicine
PROC: 3E0T3BZ Introduction of Anesthetic Agent into Peripheral Nerves and Plexi, Percutaneous Approach (ICD-10-PCS; 2018-09-03)
PROC: 0QSG35Z Reposition Right Tibia with External Fixation Device, Percutaneous Approach (ICD-10-PCS; principal; 2018-09-03 07:30)
DX: S82.871A Displaced pilon fracture of right tibia, initial encounter for closed fracture (principal); S20.229A Contusion of unspecified back wall of thorax, initial encounter; S70.01XA Contusion of right hip, initial encounter; W12.XXXA Fall on and from scaffolding, initial encounter; M17.11 Unilateral primary osteoarthritis, right knee; R91.1 Solitary pulmonary nodule; Y93.H3 Activity, building and construction; Y92.61 Building [any] under construction as the place of occurrence of the external cause; Y99.0 Civilian activity done for income or pay

== ENCOUNTER 2018-09-18 08:37 | Observation (INO) | payer OTHER ==
[2018-09-18] MEDS ORDERED: ceFAZolin 1 gm in NS 2 GM/200 ML BAG IVPB ONE (10:43)
[2018-09-18] MEDS ORDERED: Midazolam 2 MG/2 ML VIAL ONE (11:32)
[2018-09-18] MEDS ORDERED: Propofol 10 mg/ml Inj (20 ML) ONE (11:32)
[2018-09-18] MEDS ORDERED: Lidocaine Hydrochloride 5 ML INJ ONE (12:18)
[2018-09-18] MEDS ORDERED: Phenylephrine 10 mg/ml Inj ONE (12:18)
[2018-09-18] MEDS ORDERED: ceFAZolin 1 gm in NS 1 GM/100 ML BAG IVPB ONE (16:03)
[2018-09-18] MEDS ORDERED: Bupivacaine-Epi 0.5%-1:200,000 PF Inj ONE (17:15)
--- NOTE | 2018-09-18 17:40 | PCM.SURG1 ---
Surgeon's Initial Post Op Note - Surgeon's Notes Surgeon: Dr. Armando Floor Press Operator: Dr. Britton pgy-3, Dr. Magaña PGY-3, Dr. Linares PGY-2 Type of Anesthesia: General LMA, Local Anesthesia Administered By: Dr. Mcdermott Pre-Operative Diagnosis: right ankle displaced pilon fracture Operative Findings: see dictation. synthes L plate, screws. 2-0,3-0,4-0 vicryl, 4-0 nylon Post-Operative Diagnosis: same Operation Performed: right ankle tibial ORIF Specimen/Specimens Removed: bone, soft tissue Estimated Blood Loss: EBL {In ML}: 200 Blood Products Given: N/A Drains Used: No Drains Post-Op Condition: Good Date of Surgery/Procedure: 09/18/18 Time of Surgery/Procedure: 17:40
[2018-09-18] MEDS ORDERED: HYDROmorphone 0.5 mg/0.5 ml ISec IVP PRN (17:42)
[2018-09-18] MEDS ORDERED: Oxycodone/Acetaminophen 5/325 mg Tab PO PRN (17:45)
[2018-09-18] MEDS ORDERED: Bupivacaine 0.25% 20 ML INJ IJ ONE ×2 (17:52→17:54)
--- NOTE | 2018-09-18 18:07 | RAD ---
Date of service: 09/18/2018 PROCEDURE: Right Ankle Radiographs. HISTORY: Status post surgery COMPARISON: Comparison made with prior plain film radiographs and CT scan of the right lower extremity. 09/03/2018 and 09/01/2018. FINDINGS: Note that the examination is somewhat limited due to overlying fiberglass cast BONES: ORIF previously noted comminuted intra-articular fracture distal tibia extending from the metaphysis into the tibiotalar joint space margin.. Satisfactory alignment.. There is mild surrounding soft tissue swelling JOINTS: Normal. No osteoarthritis. Ankle mortise maintained. Talar dome intact. SOFT TISSUES: As above. OTHER FINDINGS: None. IMPRESSION: ORIF previously noted comminuted intra-articular fracture distal tibia. Satisfactory alignment
--- NOTE | 2018-09-18 18:25 | PCM.ANESB2 ---
Popliteal Nerve Block - Popliteal Nerve Block Date of Procedure: 09/18/18 Anesthesiologist: Chapito Pre-Procedure Diagnosis: s/p right ankle ORIF Procedure Performed: Popliteal Nerve Block Right - Procedure Popliteal Nerve Block: [id number], right sciatic nerve block, popliteal approach, done in PACU post- operatively. Under ultrasound guidance, sterile conditions, 20 cc 0.25% bupivacaine injected, 5 cc increments, negative aspiration throughout. VSS, patient tolerated procedure well. Block requested by Dr. Armando for post-op pain relief.
[2018-09-18] MEDS: Lactated Ringer's 1,000 ML IV SCH (18:30)
[2018-09-18 18:34] LABS: HEMOGLOBIN 14.2 g/dL (12.0-18.0)
[2018-09-18 19:37] VITALS: RESP 20
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
[2018-09-19] MEDS: Lactated Ringer's 1,000 ML IV SCH (03:30)
[2018-09-19 04:54] VITALS: O2SAT 94
[2018-09-19 08:04] LABS: BASO % 0.3 % (0.0-2.0); EOS # 0.1 K/uL (0.0-0.7)
[2018-09-19 08:05] VITALS: BP 103/69; PULSE 98; TEMP 98.1
[2018-09-19 08:18] LABS: EOS % 0.7 % (0.0-4.0); LYMPH % 24.7 % (20.0-40.0); MEAN CELL VOLUME 84.8 fL (80.0-94.0); MEAN CORPUSCULAR HEMOGLOBIN 27.9 pg (27.0-31.0); MEAN CORPUSCULAR HGB CONC 32.9 g/dL (33.0-37.0); MEAN PLATELET VOLUME 7.5 fL (7.2-11.7); MONO # 0.9 K/uL (0.0-0.8); MONO % 10.6 % (0.0-10.0); NEUT # 5.2 K/uL (1.8-7.0); NEUT % 63.7 % (50.0-75.0); RBC 4.11 Mil/uL (4.40-5.90); RED CELL DISTRIBUTION WIDTH 13.4 % (11.5-14.5); WHITE BLOOD COUNT 8.2 K/uL (4.8-10.8)
[2018-09-19 08:26] LABS: HEMOGLOBIN 11.5 g/dL (12.0-18.0)
[2018-09-19 08:36] LABS: ALB/GLOB RATIO 1.2 (1.0-2.1); ALBUMIN 2.9 g/dL (3.5-5.0); ALT/SGPT 32 U/L (21-72); AST/SGOT 38 U/L (17-59); BLOOD UREA NITROGEN 14 mg/dL (9-20); CALCIUM 8.3 mg/dl (8.6-10.4); GFR NON-AFRICAN AMERICAN > 60
--- NOTE | 2018-09-19 08:51 | CP.PCM.DIS ---
Provider - Provider Date of Admission: 09/18/18 17:42 Attending physician: Taran Avitia DO Primary care physician: [facility] Time Spent in preparation of Discharge (in minutes): 29 Hospital Course - Lab Results Lab Results: Most Recent Lab Values WBC 8.2 K/uL (4.8-10.8) 09/19/18 07:55 RBC 4.11 Mil/uL (4.40-5.90) L 09/19/18 07:55 Hgb 11.5 g/dL (12.0-18.0) L D 09/19/18 07:55 Hct 34.9 % (35.0-51.0) L 09/19/18 07:55 MCV 84.8 fL (80.0-94.0) 09/19/18 07:55 MCH 27.9 pg (27.0-31.0) 09/19/18 07:55 MCHC 32.9 g/dL (33.0-37.0) L 09/19/18 07:55 RDW 13.4 % (11.5-14.5) 09/19/18 07:55 Plt Count 281 K/uL (130-400) 09/19/18 07:55 MPV 7.5 fL (7.2-11.7) 09/19/18 07:55 Neut % (Auto) 63.7 % (50.0-75.0) 09/19/18 07:55 Lymph % (Auto) 24.7 % (20.0-40.0) 09/19/18 07:55 [place] % (Auto) 10.6 % (0.0-10.0) H 09/19/18 07:55 Eos % (Auto) 0.7 % (0.0-4.0) 09/19/18 07:55 Baso % (Auto) 0.3 % (0.0-2.0) 09/19/18 07:55 Neut # (Auto) 5.2 K/uL (1.8-7.0) 09/19/18 07:55 Lymph # (Auto) 2.0 K/uL (1.0-4.3) 09/19/18 07:55 [place] # (Auto) 0.9 K/uL (0.0-0.8) H 09/19/18 07:55 Eos # (Auto) 0.1 K/uL (0.0-0.7) 09/19/18 07:55 Baso # (Auto) 0.0 K/uL (0.0-0.2) 09/19/18 07:55 Sodium 135 mmol/L (132-148) 09/19/18 07:55 Potassium 3.7 mmol/L (3.6-5.2) 09/19/18 07:55 Chloride 102 mmol/L (98-107) 09/19/18 07:55 Carbon Dioxide 27 mmol/L (22-30) 09/19/18 07:55 Anion Gap 9 (10-20) L 09/19/18 07:55 BUN 14 mg/dL (9-20) 09/19/18 07:55 Creatinine 0.7 mg/dL (0.8-1.5) L 09/19/18 07:55 Est GFR ( Amer) > 60 09/19/18 07:55 Est GFR (Non-Af Amer) > 60 09/19/18 07:55 POC Glucose (mg/dL) 96 mg/dL (65-110) 09/19/18 06:17 Random Glucose 99 mg/dL (75-110) 09/19/18 07:55 Calcium 8.3 mg/dl (8.6-10.4) L 09/19/18 07:55 Total Bilirubin 1.6 mg/dL (0.2-1.3) H 09/19/18 07:55 AST 38 U/L (17-59) 09/19/18 07:55 ALT 32 U/L (21-72) 09/19/18 07:55 Alkaline Phosphatase 62 U/L (38-126) 09/19/18 07:55 Total Protein 5.5 g/dL (6.3-8.3) L 09/19/18 07:55 Albumin 2.9 g/dL (3.5-5.0) L D 09/19/18 07:55 Globulin 2.5 gm/dL (2.2-3.9) 09/19/18 07:55 Albumin/Globulin Ratio 1.2 (1.0-2.1) 09/19/18 07:55 - Hospital Course Hospital Course: This is a 38 year old male who yesterday came in for surgery and is status post right ankle tibial ORIF on 09/18/2018 with nerve block for pain control. He is doing well and will be discharged today. 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 He was found to have a right comminuted intra-articular distal tibia fracture/ankle injury and a right ankle application of external fixator placed on 09/03/2018 and he now returns for follow up surgery. Reviewed lab work and he does not have a WBC count, Hgb is 11.5 and he does not have a fever. Patient will be discharged with pain medication for him to take once the popliteal nerve block wears off He is aware he needs to follow up with his primary care physician as well as podiatry surgery Discharge Exam - Head Exam Head Exam: NORMAL INSPECTION, NORMOCEPHALIC - Eye Exam Eye Exam: EOMI, Normal appearance - Respiratory Exam Respiratory Exam: Clear to PA & Lateral, NORMAL BREATHING PATTERN, UNREMARKABLE - Cardiovascular Exam Cardiovascular Exam: REGULAR RHYTHM - GI/Abdominal Exam GI & Abdominal Exam: Normal Bowel Sounds, Soft. absent: Tenderness, Unremarkable - Extremities Exam Additional comments: Right leg wrapped with erin wrap and gauze. He is status post popliteal nerve block and was able to move his toes. Toes feel warm - Neurological Exam Neurological exam: Alert, Oriented x3 - Skin Skin Exam: Normal Color, Warm Discharge Plan - Discharge Medications Prescriptions: Meloxicam [Mobic] 7.5 mg PO Q12 #14 tab traMADol [Ultram] 50 mg PO TID #15 tab - Follow Up Plan Condition: GOOD Disposition: HOME/ ROUTINE
--- NOTE | 2018-09-21 14:55 | RAD ---
Date of service: 09/18/2018 PROCEDURE: Intraoperative Fluoroscopy. HISTORY: RIGHT ANKLE fracture FINDINGS: Fluoroscopic assistance was provided for open reduction internal fixation of an ankle fracture. Please refer to the operative report from [facility].
--- NOTE | 2018-09-22 03:36 | OP ---
PROCEDURE DATE: 09/18/2018 SURGEON: Peri Armando DPM ASSISTANTS: Bonnie Britton, PGY-3, Dr. Magaña, PGY-3, Dr. Linares, PGY-2 SOFTWARE ARCHITECT: Dr. Uriarte ANESTHESIA: General, popliteal block to right leg. PREOPERATIVE DIAGNOSIS: Right ankle displaced distal tibial pilon fracture. POSTOPERATIVE DIAGNOSIS: Right ankle displaced distal tibial pilon fracture. PROCEDURES PERFORMED: 1. Right ankle removal of external fixator. 2. Right ankle open reduction with internal fixation of distal tibial fracture with plate and screw fixation. INDICATIONS: The patient is a 38-year-old male with the above-mentioned diagnosis. The patient had received the first stage of the two-staged procedure to treat the pilon fracture of the right ankle and now surgical intervention for definitive fixation is required. The patient signed the consent after careful explanation of risks, benefits, complications, and alternatives for surgical procedure. No guarantees were given nor implied. NPO status was confirmed prior to bringing the patient to the operating room. The patient was brought into the operating room and placed on the operating room table in a supine position. A well-padded pneumatic thigh tourniquet was placed to the patient's right thigh. Once general anesthesia was achieved, the right lower extremity was prepped and draped in a normal sterile manner. All parts of the external fixator was then prepped with chlorhexidine scrub. The pneumatic thigh tourniquet was then inflated to 350 mmHg, and the procedure began. DESCRIPTION OF PROCEDURE: PROCEDURE #1: Right ankle removal of external fixator: Attention was directed to the patient's right lower extremity where the Synthes delta frame was applied prior to the surgery. Utilizing sterile equipment from the Synthes external fixator set, the entire external fixator was dissembled and removed from the operative field. The Schanz screws and Steinmann pins were then removed from the calcaneus, the tibia, and the talus. All sites were then copiously irrigated with sterile normal saline. Next, a curette was used to debride the fibrous tissue from the pin sites and copiously irrigate each pin site with sterile saline. The skin was then reapproximated with 4-0 nylon. PROCEDURE #2: Right ankle open reduction with internal fixation of the distal tibial fracture: Attention was directed to the anterior aspect of the right ankle where the fracture site was confirmed under C-arm guidance. An approximately 15 cm linear longitudinal incision was made on the anterolateral aspect of the right ankle extending from the proximal tibia to the talus. At this time, the incision was carried down through subcutaneous tissue with care being taken to identify and retract all vital neurovascular structures. All bleeders were cauterized and ligated as necessary. At the level of the periosteum, the periosteal tissue was then resected medially and laterally, thus exposing the distal tibia and ankle joint into visualization. The fracture fragments were then visualized and there was noted to be a comminuted and displaced tibial fracture. Utilizing multiple bone clamps and temporary K-wire fixation, the fracture site was then reduced into proper anatomic alignment bringing the tibia back out to length and restoring the articular surface of the ankle mortise. At this time, two 3.5 Synthes screws were placed from medial to lateral across the fracture site using standard AO principles and technique. Next, a Synthes 3.5 LCP anterolateral tibial plate was placed over the fracture site. Using standard AO principles and technique, the holes were then filled with 3.5 locking and non-locking screws. Next, a 3.5 mm Synthes non-locking screw was placed from anterior to posterior independent of the plate using standard AO principles and technique. The K-wires were then subsequently removed and the surgical site was then copiously irrigated with sterile normal saline. All the screw locations were then confirmed and noted to be in good anatomic alignment on fluoroscopy. Next, Irricept irrigation was then used to copiously flush the surgical incision site. The deep subcutaneous tissue was then reapproximated with 2-0 and 3-0 Vicryl and the subcutaneous tissue was reapproximated with 3-0 Vicryl. The skin was then reapproximated with 3-0 and 4-0 nylon. At this time, a Doppler was then used to confirm the pedal pulses were present. Postoperative injection of 10 mL of 0.5% Marcaine plain was given in a local block-type fashion to the right leg. Postoperative dressing included Xeroform, 4x4 gauze, Jade, and an AO posterior splint was applied to the right lower extremity. POSTOPERATIVE CONDITION: The patient tolerated the anesthesia and the procedure well and was escorted to the recovery room with vital signs stable and neurovascular status intact to the right lower extremity. The patient will follow up with Dr. Armando on an outpatient basis. Bonnie Britton DPM Peri Armando DPM MTDRachel
== END 2018-09-19 12:00 | disposition home or self-care (01) ==
LOC: C.SDS 08:37 → C.6T 17:42
PROVIDERS: ADMIT Hospitalist; ATTEND Hospitalist
DX: S82.871A Displaced pilon fracture of right tibia, initial encounter for closed fracture (principal); Z47.2 Encounter for removal of internal fixation device; Z88.6 Allergy status to analgesic agent; W12.XXXA Fall on and from scaffolding, initial encounter; Y99.0 Civilian activity done for income or pay
CPT/HCPCS: 20694; 27827; 36415; 64450; 73600; 80053; 82948; 85014; 85018; 85025; 96365; G0378; J0690; J1170; J2250; J2370; J2704; J3010; J7120

== ENCOUNTER 2018-09-29 09:31 | Emergency (ER) | payer OTHER ==
[2018-09-29 09:45] VITALS: RESP 16; TEMP 98; O2SAT 98
--- NOTE | 2018-09-29 09:45 | C.PDOC ---
History Of Present Illness This is a 38 year old male with no significant past medical history who is s/p right ankle tibial ORIF for right ankle displaced pilon fracture by Dr. Armando on 09/18/18. Patient has attempted to follow up with Dr. Armando in the clinic but due to a language barrier, patient did not understand podiatry is present once a week in the clinic. Patient was discharged with mobic, tramadol, and an antibiotic x 7 days which he has completed the course. He presents today with throbbing, intermittent pain, with associated numbness in metatarsals 2-5. Admitted to subjective fevers and chills. <Lavern Brandt - Last Filed: 09/29/18 11:39> History Per: Patient History/Exam Limitations: no limitations Onset/Duration Of Symptoms: Days, Gradual Current Symptoms Are (Timing): Still Present Severity: Moderate Pain Scale Rating Of: 5 <Lavern Brandt - Last Filed: 09/29/18 11:39> <Sukhjinder Gamboa - Last Filed: 09/29/18 13:30> Time Seen by Provider: 09/29/18 09:43 Chief Complaint (Nursing): Lower Extremity Problem/Injury Past Medical History - Medical History PMH: No Chronic Diseases, Fractures (RT. LEG), Gastritis Denies: Chronic Kidney Disease - [facility] Procedures INTRODUCE LOCAL ANESTH IN PERIPH NRV, PLEXI, PERC (09/01/18) REPOSITION RIGHT TIBIA WITH EXT FIX, PERC APPROACH (09/01/18) Family History: States: Unknown Family Hx - Social History Hx Alcohol Use: No Hx Substance Use: No - Immunization History Hx Tetanus Toxoid Vaccination: No Hx Influenza Vaccination: Yes Hx Pneumococcal Vaccination: No <Lavern Brandt - Last Filed: 09/29/18 11:39> Vital Signs: Last Vital Signs Temp 98 F 09/29/18 09:43 Pulse 98 H 09/29/18 09:43 Resp 16 09/29/18 09:43 BP 139/91 H 09/29/18 09:43 Pulse Ox 98 09/29/18 09:43 - [facility] Procedures INTRODUCE LOCAL ANESTH IN PERIPH NRV, PLEXI, PERC (09/01/18) REPOSITION RIGHT TIBIA WITH EXT FIX, PERC APPROACH (09/01/18) <Sukhjinder Gamboa - Last Filed: 09/29/18 13:30> Review Of Systems Constitutional: Positive for: Fever, Chills Musculoskeletal: Positive for: Leg Pain, Foot Pain <Lavern Brandt - Last Filed: 09/29/18 11:39> Physical Exam - Physical Exam Appears: Well, Non-toxic, No Acute Distress Skin: Normal Color, Warm, Dry Head: Atraumatic, Normacephalic Cardiovascular: Rhythm Regular Respiratory: Normal Breath Sounds, No Wheezing Extremity: Pedal Edema (No evidence of cellulitis, sutures are in place, no pus, erythema, or abnormal edema (some expected as patient is post op).) Pulses: Left Dorsalis Pedis: Normal, Right Dorsalis Pedis: Normal <Tommie Brandtrina - Last Filed: 09/29/18 11:39> ED Course And Treatment - Physician Consult Information Time Consulting Physician Contacted: 10:15 Physician Contacted: Peri Armando Outcome Of Conversation: Spoke with Dr. Armando, will have resident come down and apply new dressings. <BrentjanaeLavern - Last Filed: 09/29/18 11:39> - Other Rad tibia/fibula XR X-Ray: Viewed By Me, Read By Radiologist Interpretation: IMPRESSION: No acute displaced fracture or dislocation in the proximal tibia or fibula. ankle XR X-Ray: Viewed By Me, Read By Radiologist Interpretation: IMPRESSION: Status post open reduction and internal fixation of comminuted intra-articular fracture in the distal tibia. Interval progressive healing with sclerosis and blurring of fracture margins. <Sukhjinder Gamboa E - Last Filed: 09/29/18 13:30> Disposition Comment: Patient had new dressing applied by podiatry. Patient is to follow up in the clinic on 10/05/18 12pm to see Dr. Armando. Appointment was made for patient to prevent any issues with follow up. Continue with NSAIDs as needed for pain. Doctor Will See Patient In The: Office ([facility]) Counseled Patient/Family Regarding: Need For Followup - Disposition Disposition Time: 13:00 - POA Present On Arrival: None <RikkiLavern - Last Filed: 09/29/18 11:39> <Sukhjinder Gamboa E - Last Filed: 09/29/18 13:30> - Disposition Referrals: [facility] [Outside] [facility] [Outside] [facility] [Outside] Peri Armando DPM [Staff Provider] - Disposition: HOME/ ROUTINE Condition: GOOD Additional Instructions: sigue el 25 de Febrero a las 12 de la tarde con [facility] con Dr. Armando Instructions: Postoperative Pain (DC) Forms: [employer] (Maori) Print Language: GERMAN - Clinical Impression Clinical Impression: Fracture of distal end of left tibia, Pain and swelling of right lower extremity
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
--- NOTE | 2018-09-29 13:24 | RAD ---
Date of service: 09/29/2018 PROCEDURE: Right Ankle Radiographs. HISTORY: post-op COMPARISON: 09/01/2018. FINDINGS: BONES: Status post open reduction and internal fixation of comminuted intra-articular fracture in the distal tibia with metallic plate and multiple screws. There is interval progressive healing with sclerosis and blurring of fracture margins. JOINTS: Ankle mortise maintained. Talar dome intact SOFT TISSUES: Normal. OTHER FINDINGS: Cast obscures fine bony details. There are multiple screw tracks in the tibia, talus and calcaneus. IMPRESSION: Status post open reduction and internal fixation of comminuted intra-articular fracture in the distal tibia. Interval progressive healing with sclerosis and blurring of fracture margins.
--- NOTE | 2018-09-29 13:26 | RAD ---
Date of service: 09/29/2018 PROCEDURE: Radiographs of the right tibia and fibula. HISTORY: post-op COMPARISON: None available TECHNIQUE: Frontal and lateral views obtained. FINDINGS: BONES: Bone alignment and mineralization are normal. No acute displaced fracture or bone destruction in the proximal tibia or fibula. Incompletely imaged is hardware in the distal tibia. There are screw tracks in the mid diaphysis of the tibia. JOINT SPACES: Unremarkable. OTHER FINDINGS: None. IMPRESSION: No acute displaced fracture or dislocation in the proximal tibia or fibula.
[2018-09-29 13:29] VITALS: BP 129/85; PULSE 78
== END 2018-09-29 13:28 | disposition home or self-care (01) ==
LOC: C.ER 09:31
DX: S82.871A Displaced pilon fracture of right tibia, initial encounter for closed fracture (principal); X58.XXXA Exposure to other specified factors, initial encounter; M79.661 Pain in right lower leg; M79.89 Other specified soft tissue disorders

== ENCOUNTER 2018-10-19 10:05 | Outpatient (CLI) | payer OTHER | END 2018-10-19 10:06 | disposition home or self-care (01) | LOC: C.RADH 10:05 ==